=== PATIENT | male | born 1970 | race Caucasian/White ===

== ENCOUNTER → 2016-11-24 | Outpatient (CLI) | payer BC, MEDICAID ==
[~2016-11-24] MED LIST: ATAZ1TAB PO; AZIT250T PO; AZIT250T5 PO; BUPR100T6 PO; EMTR1TAB7 PO; LISI40TA PO; PRAV40TA2 PO; SERT100T PO
[2016-11-24 15:51] LABS: BASOPHILS % (AUTO) 0 % (0-10); EOSINOPHILS # (AUTO) 0.1 10^3/uL (0.0-0.3); EOSINOPHILS % (AUTO) 2 % (0-10); LYMPHOCYTES % (AUTO) 27 % (12-44); MEAN CORPUSCULAR HEMOGLOBIN 32 PG (25-34); MEAN CORPUSCULAR HGB CONC 36 G/DL (32-36); MEAN CORPUSCULAR VOLUME 87 FL (80-99); MEAN PLATELET VOLUME 10.1 FL (7.4-10.4); MONOCYTES % (AUTO) 14 % (0-12); NEUTROPHILS # (AUTO) 4.2 X 10^3 (1.8-7.8); NEUTROPHILS % (AUTO) 57 % (42-75); PLATELET COUNT 184 10^3/uL (130-400); RED BLOOD COUNT 4.92 10^6/uL (4.35-5.85); RED CELL DISTRIBUTION WIDTH 12.8 % (10.0-14.5); WHITE BLOOD COUNT 7.4 10^3/uL (4.3-11.0)
[2016-11-24 16:08] LABS: ALANINE AMINOTRANSFERASE 21 U/L (0-55); ALBUMIN 4.1 G/DL (3.2-4.5); ANION GAP 9 MMOL/L (5-14); ASPARTATE AMINO TRANSFERASE 15 U/L (5-34); BILIRUBIN,TOTAL 2.6 MG/DL (0.1-1.0); BLOOD UREA NITROGEN 14 MG/DL (7-18); BUN/CREATININE RATIO 13; CALCIUM 8.7 MG/DL (8.5-10.1); CARBON DIOXIDE 21 MMOL/L (21-32); CHLORIDE 110 MMOL/L (98-107); CHOLESTEROL 148 MG/DL (< 200); CREATININE SERUM 1.04 MG/DL (0.60-1.30); DIRECT LDL 88 MG/DL (1-129); GFR ESTIMATED > 60; GLUCOSE 106 MG/DL (70-105); POTASSIUM 3.8 MMOL/L (3.6-5.0); SODIUM 140 MMOL/L (135-145); TOTAL PROTEIN 6.6 G/DL (6.4-8.2); TRIGLYCERIDES 223 MG/DL (<150); VLDL CHOLESTEROL 45 MG/DL (5-40)
[2016-11-24 16:37] LABS: THYROID STIMULATING HORMONE 1.02 UIU/ML (0.35-4.94)
[2016-11-26 07:25] LABS: LYMPH % FLOW 28.9 % (18.0-44.0); WBC FOR FLOW 7.3 /UL (4.3-11.0)
[2016-11-26 12:05] LABS: CD8 LYMPH ABS 781 /uL (200-1300)
[2016-11-27 07:50] LABS: CD4 LYMPH % 41.2 %; CD4 LYMPH ABS 868.2 /uL (500.0-2000.0); CD4/CD8 RATIO 1.1 ratio (1.2-6.0)
[2016-11-28 11:48] LABS: HIV-1 RNA PCR COPIES/ML PT Not Detected Copies/mL (<=39)
[2016-11-28 14:13] LABS: HIV-1 RNA PCR LOG COPIES/ML PT Not Detected (<=1.59)
== END ==
LOC: LAB 15:26
PROVIDERS: ATTEND Nurse Practitioner Family
DX: B20 Human immunodeficiency virus [HIV] disease (principal); Z13.220 Encounter for screening for lipoid disorders; Z13.29 Encounter for screening for other suspected endocrine disorder
CPT/HCPCS: 36415; 80053; 80061; 84439; 84443; 85025; 86360; 87536

== ENCOUNTER → 2017-06-13 | Outpatient (CLI) | payer BC, MEDICAID ==
--- NOTE | 2017-06-13 11:59 | Diagnostic Imaging Report ---
PROCEDURE: MRI lumbar spine. TECHNIQUE: Multiplanar, multisequence MRI of the lumbar spine was performed without contrast. INDICATION: Back pain. COMPARISON: None. FINDINGS: There are 5 lumbar type vertebral bodies presumed for the purposes of this report. Normal alignment. Vertebral body heights are maintained. Normal bone marrow signal. No abnormal signal in the conus which terminates at L1. Normal morphology of the cauda equina without evidence of arachnoiditis. The visualized abdominal and pelvic contents are unremarkable. At L3-L4, there is a right subarticular radial tear and disc protrusion which moderately narrows the right lateral recess. At L4-L5, there is a right foraminal radial tear and disc protrusion which, along with facet arthropathy at this level, results in moderate right neural foraminal narrowing. The intervertebral disc are otherwise preserved. No other evidence of neural impingement in the lumbar spine. IMPRESSION: Disc protrusions result in moderate right lateral recess narrowing at L3-L4 and right neural foraminal narrowing at L4-L5. Both of these findings would account for a right L4 radiculopathy. Dictated by: Dictated on workstation # [id number]
== END ==
LOC: RAD 08:39
PROVIDERS: ATTEND Orthopaedic Surgery
DX: M51.26 Other intervertebral disc displacement, lumbar region (principal); M48.06 Spinal stenosis, lumbar region
CPT/HCPCS: 72148

== ENCOUNTER 2017-06-22 13:24 | Emergency (ER) | payer OTHER, BC ==
[~2017-06-22] VITALS: Ht 182.9 cm; Wt 99.8 kg
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
--- NOTE | 2017-06-22 19:00 | Diagnostic Imaging Report ---
INDICATION: Mid back pain. COMPARISON: None. TECHNIQUE: Multiplanar multisequence MRI images of the thoracic spine were obtained without contrast. FINDINGS: Alignment is normal. There is no subluxation or fracture. No osseous lesion identified. The course and caliber of the thoracic cord are normal. There is minimal to mild diffuse degenerative disc disease. There is a broad-based posterior disc bulge at T6-T7 and T7-T8. However, there is no foraminal or central canal stenosis. The neural foramen and posterior elements are normal. There is no paraspinous mass. IMPRESSION: 1. Minimal to mild diffuse degenerative disc disease with posterior broad-based disc bulges at T6-T7, T7-T8. 2. No foraminal or central canal stenosis. 3. Normal cord signal. Dictated by: Dictated on workstation # [id number]
[2017-06-22 19:29] VITALS: BP 118/78
== END 2017-06-22 19:29 | disposition home or self-care (01) ==
LOC: EDUNIT# 13:24 → ER 13:27
DX: M54.6 Pain in thoracic spine (principal); M54.41 Lumbago with sciatica, right side
CPT/HCPCS: 72146; 72148; 99282

== ENCOUNTER → 2017-07-16 | Outpatient (CLI) | payer OTHER, BC ==
--- NOTE | 2017-07-16 15:23 | Diagnostic Imaging Report ---
PROCEDURE: MR imaging cervical spine without contrast. TECHNIQUE: Multiplanar, multisequence MR imaging of the cervical spine was performed without contrast. INDICATION: Neck pain. FINDINGS: There is mild posterior translation of C5 over C6. 2 mm of posterior translation of the vertebra is seen at this level. Otherwise, the posterior spinal line alignment is satisfactory. The vertebral body heights are preserved. There is moderate disc height loss at C5/6 and mild disc height loss at C6/7 levels. There is disc desiccation at all levels. The spinal cord has normal signal and caliber. The foramen magnum and upper cervical canal are patent. C2/3: No disc herniation, no spinal canal or foraminal stenosis. C3/4: No disc herniation, no spinal canal or foraminal stenosis. C4/5: There is a right paracentral disc spur complex with no associated spinal canal stenosis. There is uncovertebral joint hypertrophy on the right side resulting in mild neural foraminal stenosis. There is also mild foraminal stenosis on the left related to facet joint hypertrophy. C5/6: There is mild posterior translation of C5 over C6. There is a prominent disc spur complex with slight inferior migration component and a prominent posterior ligamentous hypertrophy. There is severe spinal canal stenosis reducing the AP dimension of the canal to 5.8 mm with mild cord compression. No cord signal abnormality. There is bilateral severe foramina stenosis. C6/7: There is a spur disc complex associated with [id number] spinal canal stenosis reducing the AP dimension of the canal to 6.7 mm. There is mild cord compression. The foramina demonstrates severe stenosis on the left and moderate stenosis on the right. C7/T1: There is no disc herniation and no spinal canal stenosis. The foramina demonstrate no stenosis on the right and moderate to severe stenosis on the left. This appears to relate to mostly facet and some uncovertebral hypertrophy. IMPRESSION: There is severe spinal canal stenosis with associated cord compression but no cord signal abnormality at C5/6 and C6/7 levels. Dictated by: Dictated on workstation # [id number]
== END ==
LOC: RAD 13:38
PROVIDERS: ATTEND Orthopaedic Surgery
DX: M48.02 Spinal stenosis, cervical region (principal); M54.12 Radiculopathy, cervical region
CPT/HCPCS: 72141

== ENCOUNTER 2018-11-23 07:42 | Outpatient (CLI) | payer BC, MEDICAID ==
[~2018-11-23] VITALS: Ht 182.9 cm; Wt 99.8 kg
== END 2018-11-23 13:22 | disposition home or self-care (01) ==
LOC: PREOP 07:42
PROVIDERS: ATTEND Surgery
DX: Z01.818 Encounter for other preprocedural examination (principal)

== ENCOUNTER 2018-11-24 10:54 | Day surgery (SDC) | payer BC, MEDICAID ==
[~2018-11-24] VITALS: Ht 182.9 cm; Wt 99.8 kg
[~2018-11-24 10:54] MED LIST changes: +AZIT250T12 PO; -AZIT250T5 PO; +EMTR1TAB13 PO; +FLUO20CA42 PO
--- OUTSIDE RECORDS SUMMARY | 2018-11-24 10:59 | XMS REPORT ---
Author Author Lynn Estrada [facility] eClinicalWorks Address Unknown Phone Unavailable Care Team Providers Care E Learning Manager Name Role Phone Lynn Estrada Unavailable Allergies No Known Allergies Problems Problem Type Condition ICD-9 Code Onset Dates Condition Status Problem ED (erectile dysfunction) 607.84 Active Problem Essential hypertension, benign 401.1 Active Problem Hyperglycemia 790.29 Active Problem Human immunodeficiency virus (HIV) disease 042 Active Problem Pain in soft tissues of limb 729.5 Active Problem Nondependent tobacco use disorder 305.1 Active Medications Medication Code System Code Instructions Start Date End Date Status Dosage Cialis [facility] [address]-99 20 MG Orally every 72 hrs February 18, 2013 1 tablet as needed Results No Known Results Summary Purpose eClinicalWorks Submission
--- OUTSIDE RECORDS SUMMARY | 2018-11-24 10:59 | XMS REPORT ---
Author Author Nuvia Garcia Organization eClinicalWorks Address Unknown Phone Unavailable Care Team Providers Care Home Improvement Contractor Name Role Phone Nuvia Garcia CP Unavailable Allergies No Known Allergies Problems Problem Type Condition ICD-9 Code Onset Dates Condition Status Problem long-term (current) use of opiate analgesic V58.69 Inactive Problem Impotence of organic origin 607.84 Inactive Problem Need for prophylactic vaccination against streptococcus pneumoniae ( pneumococcus) V03.82 Inactive Problem Unspecified infectious and parasitic diseases 136.9 Inactive Problem Essential hypertension, benign 401.1 Active Problem Pain in soft tissues of limb 729.5 Inactive Problem Human immunodeficiency virus [HIV] 042 Inactive Problem Need for prophylactic vaccination and inoculation, Influenza V04.81 Inactive Problem Unspecified sinusitis (chronic) 473.9 Inactive Problem Nondependent tobacco use disorder 305.1 Active Problem Screening examination for venereal disease V74.5 Inactive Medications Medication Code System Code Instructions Start Date End Date Status Dosage Lisinopril [facility] 25578097107 20 Orally Once a day 2 tablet s Results No Known Results Summary Purpose eClinicalWorks Submission
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
--- OUTSIDE RECORDS SUMMARY | 2018-11-24 10:59 | XMS REPORT ---
Author Author Lynn Estrada [facility] eClinicalWorks Address Unknown Phone Unavailable Care Team Providers Care Cooler Tender Name Role Phone Lynn Estrada Unavailable Allergies No Known Allergies Problems Problem Type Condition ICD-9 Code Onset Dates Condition Status Problem skilled nursing (current) use of opiate analgesic V58.69 Inactive [...] examination for venereal disease V74.5 Inactive Medications No Known Medications Results No Known Results Summary Purpose SegmintinicalWorks Submission
--- OUTSIDE RECORDS SUMMARY | 2018-11-24 10:59 | XMS REPORT ---
Author Author Nuvia Garcia Organization [employer] Address Unknown Phone Unavailable Care Team Providers Care Analyst Market Intelligence Name Role Phone Nuvia Garcia CP Unavailable Allergies No Known Allergies Problems Problem Type Condition ICD-9 Code Onset Dates Condition Status Problem penitentiary (current) use of opiate analgesic V58.69 Inactive [...] Instructions Start Date End Date Status Dosage Pravastatin Sodium [facility] [address]-52 40 MG Orally QHS Nov 08, 2014 1 tablet Results No Known Results Summary Purpose eClinicalWorks Submission
--- OUTSIDE RECORDS SUMMARY | 2018-11-24 10:59 | XMS REPORT ---
Author Author Tamiko Fong [facility] Address [address] [place], [place] [id number] Care Team Providers Care Mononitrotoluene Operator Name Role Phone Tamiko Fong Unavailable PROBLEMS Type Condition ICD9-CM Code [id number] Code Onset Dates Condition Status SNOMED Code Problem Benign essential hypertension I10 Active 6590806 Problem Arthralgia of right ankle M25.571 Active 252201399 Problem Depression F32.9 Active 49747662 Problem Acquired immunodeficiency syndrome B20 Active 49279118 Problem Mixed hyperlipidemia E78.2 Active 514695163 Problem Generalized osteoarthritis of multiple sites M15.9 Active 312702866 Problem Bronchiolitis J21.9 Active 6128308 Problem Cigarette smoker F17.210 Active 98724934 Problem Erectile dysfunction, unspecified erectile dysfunction type N52.9 Active 986056381 Problem Other chronic pain G89.29 Active 43995151 Problem Crushing injury of right foot, sequela S97.81XS Active 67317218 ALLERGIES No Known Allergies ENCOUNTERS Encounter Location Date Diagnosis [facility] [address] [place], [place] [id number] Jun, Acquired immunodeficiency syndrome B20 ; Influenza vaccine needed Z23 and Other chronic pain G89.[address] [address] Mar, [address] [address] February, Acquired immunodeficiency syndrome B20 and Human immunodeficiency virus (HIV) disease [address] [id number] Jan, Acquired immunodeficiency syndrome B20 [address] [address] Nov, [address] [address] Nov, [address] [address] Oct, [facility] [address] [place] [phone] Aug, Acquired immunodeficiency syndrome B20 and Influenza vaccine needed Z23 [facility] [address] [place] [id number] Jul, [address] [address] Jul, Depression F32.[address] [address] May, [facility] [address] [id number] May, Acquired immune deficiency syndrome B20 ; 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 ; Benign essential hypertension I10 ; Mixed hyperlipidemia E78.2 ; Cigarette smoker F17.210 and Generalized osteoarthritis of multiple sites M15.[address] [id number] February, Acquired immune deficiency syndrome B20 ; Depression F32.9 ; Benign essential hypertension I10 ; Mixed hyperlipidemia E78.2 and Cigarette smoker F17.[address] [address] Nov, [facility] [address] [id number] Nov, Acquired immune deficiency syndrome B20 ; Screening examination for sexually transmitted disease Z11.3 ; Pain in right ankle and joints of right foot M25.571 ; Other chronic pain G89.29 ; Bronchiolitis J21.9 and Depression F32.9 [facility] [address] [place], [place] [id number] Jul, Acquired immunodeficiency syndrome B20 ; Influenza vaccine needed Z23 ; Erectile dysfunction, unspecified erectile dysfunction type N52.9 ; Arthralgia of right ankle M25.571 and Crushing injury of right foot, sequela S97.81XS [address] [address] Jun, [address] [address] 08 Jun, 2016 [facility] [address] [id number] Apr, Acquired immunodeficiency syndrome B20 [facility] [address] [id number] Dec, Acquired immune deficiency syndrome B20 ; Encounter for immunization Z23 ; Screening examination for sexually transmitted disease Z11.3 and Depression F32.9 [facility] [address] [place] [phone] Nov, [address] [address] Oct, Essential (primary) hypertension I10 [address] [id number] Sep, Human immunodeficiency virus (HIV) disease B20 and Smoking F17.[address] [address] Aug, [address] [address] Aug, Depression F32.[address] [address] Jun, Hyperlipidemia 272.[address] [address] Jun, Hyperlipidemia 272.[address] [id number] Jun, Human immunodeficiency virus (HIV) disease 042 ; Needs flu shot V04.81 ; Hyperlipidemia 272.4 ; Smoker 305.1 and Depression [address] [address] May, [address] [address] Mar, [address] [id number] February, Human immunodeficiency virus (HIV) disease 042 ; Nondependent tobacco use disorder 305.1 ; Essential hypertension, benign 401.1 and Hyperglycemia 790.[address] [address] Jan, [facility] [address] [place] [facility] [address] Nov, [facility] [address] [place] [facility] [address] Nov, [facility] [address] [place] [facility] [address] Nov, [facility] [address] [place], [place] [phone] Oct, Asymptomatic human immunodeficiency virus (HIV) infection status V08 ; Smoker 305.1 and Depression 311 [facility] [address] [place], [place] [phone] Jun, Essential hypertension, benign 401.1 ; Nondependent tobacco use disorder 305.1 and HIV (human immunodeficiency virus infection) V08 [facility] [address] [facility] [address] [place] [phone] May, [facility] [address] [facility] [address] [place] [phone] Mar, [facility] [address] [place] [facility] [address] Jan, [facility] [address] [place] [facility] [address] Oct, [facility] [address] [place] [facility] [address] Jul, [facility] [address] [place] [facility] [address] Apr, [facility] [address] [place] [facility] [address] Jan, [facility] [address] [place] [facility] [address] Oct, [facility] [address] [place] [facility] [address] Oct, [facility] [address] [place] [facility] [address] Jun, [facility] [address] [place] [facility] [address] May, [facility] [address] [place] [facility] [address] Dec, [facility] [address] [place] [facility] [place] [address] Oct, [facility] [address] [facility] [address] [place], [place] [phone] Jul, IMMUNIZATIONS Vaccine Route Administration Date Status Influenza Split 3 yrs > (QUAD) IM Intramuscular Jul 02, 2018 Administered SOCIAL HISTORY Never Assessed REASON FOR VISIT HIV f/u PLAN OF CARE Activity Details Follow Up 4 Months Reason: Pending Test QMP Plus D/L (urine) VITAL SIGNS Height 72 in 2018-07-02 Weight 214 lbs 2018-07-02 Temperature 98.3 degrees Fahrenheit 2018-07-02 Heart Rate 73 /min 2018-07-02 Respiratory Rate 18 /min 2018-07-02 Oximetry 98 % 2018-07-02 BMI 29.02 kg/m2 2018-07-02 Blood pressure systolic 138 mm Hg 2018-07-02 Blood pressure diastolic 92 mm Hg 2018-07-02 MEDICATIONS Medication Instructions Dosage Frequency Start Date End Date Duration Status [place] 10-325 MG Orally every 12 hrs 1 tablet as needed 12h 11 May, 2017 30 days Active Voltaren 1 % Transdermal four times a day 2-4 gm apply to right foot/ankle 6h Jul, 30 days Active Cialis 20 MG Orally every 72 hrs 1 tablet as needed February, 30 days Active Ventolin HFA 108 (90 Base) MCG/ACT INHALE TWO PUFFS BY MOUTH EVERY 4 HOURS NEEDED 16 Active Ibuprofen 800 mg TAKE ONE TABLET BY MOUTH THREE TIMES A DAY NEEDED 30 Active Celebrex 200 Orally Once a day 1 capsule 24h 30 Active Pravastatin Sodium 40 MG Orally Once a day 1 tablet 24h Nov, 30 day(s) Active Lisinopril 40 TAKE ONE TABLET BY MOUTH DAILY 30 Active Zoloft 100 MG Orally Once a day 1 tablet 24h 30 Oct, 2014 30 days Active Descovy 200-25 mg Orally Once a day 1 Tablet 24h Apr, 30 days Active Evotaz 300/150 mg Oral Daily 1 24h February, 30 days Active RESULTS Name Result Date Reference Range Human Immunodeficiency Virus (HIV-1), Quantitative, Real-time PCR (graph) 17124 2018-07-02 HIV-1 RNA by PCR <20 log10 HIV-1 RNA TNP Metabolic Panel (14), Comprehensive (CMP) 80176 2018-07-02 Glucose 118 65-99 BUN 10 6-24 Creatinine 1.17 0.76-1.27 eGFR If NonAfricn Am 72 >59 eGFR If Africn Am 84 >59 BUN/Creatinine Ratio 9 9-20 Sodium 142 134-144 Potassium 3.5 3.5-5.2 Chloride 102 96-106 Carbon Dioxide, Total 25 20-29 Calcium 9.2 8.7-10.2 Protein, Total 6.7 6.0-8.5 Albumin 4.4 3.5-5.5 Globulin, Total 2.3 1.5-4.5 A/G Ratio 1.9 1.2-2.2 Bilirubin, Total 1.5 0.0-1.2 Alkaline Phosphatase 112 39-117 AST (SGOT) 21 0-40 ALT (SGPT) 34 0-44 CD4/CD8 Ratio Profile 73756 2018-07-02 Absolute CD 4 [place] [phone] % CD 4 Pos. Lymph. 43.2 30.8-58.5 Abs. CD 8 Suppressor 860 109-897 % CD 8 Pos. Lymph. 37.4 12.0-35.5 CD4/CD8 Ratio 1.16 0.92-3.72 WBC 11.3 3.4-10.8 RBC 4.94 4.14-5.80 Hemoglobin 15.6 13.0-17.7 Hematocrit 45.5 37.5-51.0 MCV 92 79-97 MCH 31.6 26.6-33.0 MCHC 34.3 31.5-35.7 RDW 13.0 12.3-15.4 Platelets 229 150-379 Neutrophils 67 Not Estab. Lymphs 21 Not Estab. Monocytes 11 Not Estab. Eos 1 Not Estab. Basos 0 Not Estab. Immature Cells ROUTE DELIVERER Neutrophils (Absolute) 7.5 1.4-7.0 Lymphs (Absolute) 2.3 0.7-3.1 Monocytes(Absolute) 1.3 0.1-0.9 Eos (Absolute) 0.1 0.0-0.4 Baso (Absolute) 0.0 0.0-0.2 Immature Granulocytes 0 Not Estab. Immature Grans (Abs) 0.0 0.0-0.1 NRBC ROUTE DELIVERER Hematology Comments: ROUTE DELIVERER PROCEDURES Procedure Date Ordered Result Body Site T CELL, ABSOLUTE COUNT/RATIO Jul 02, 2018 Billed by outside source Jul 02, 2018 COMPREHEN METABOLIC PANEL Jul 02, 2018 HIV-1, DNA, QUANT Jul 02, 2018 IMMUNIZATION ADMIN Jul 02, 2018 FLU VAC NO PRSV 4 JAIME 3 YRS+ Jul 02, 2018 INSTRUCTIONS MEDICATIONS ADMINISTERED No Known Medications MEDICAL (GENERAL) HISTORY Type Description Date Medical History Benign essential HTN , (Desc:Benign essential hypertension) ; Medical History Acquired immune deficiency syndrome ; Medical History Smoking ; Medical History Human immunodeficiency virus (HIV) disease Medical History Nondependent tobacco use disorder Medical History Essential hypertension, benign Medical History Pain in soft tissues of limb Medical History Hyperglycemia Medical History ED (erectile dysfunction) Medical History Hyperlipidemia Medical History Smoker Medical History Depression Surgical History R fibula fx 11/2006
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
--- OUTSIDE RECORDS SUMMARY | 2018-11-24 11:00 | XMS REPORT ---
Author Author Nuvia Garcia [facility] eClinicalWorks Address Unknown Phone Unavailable Care Team Providers Care Equipment Maintenance Tech Name Role Phone Nuvia Garcia CP Unavailable Allergies, Adverse Reactions, Alerts Substance Reaction Event Type N.K.D.A. Info Not Available Non Drug Allergy Problems Problem Type Condition Code Onset Dates Condition Status Assessment Human immunodeficiency virus (HIV) disease 042 Active Problem Nondependent tobacco use disorder 305.1 Active Problem Human immunodeficiency virus (HIV) disease 042 Active Problem Smoker 305.1 Active Problem Depression 311 Active Problem Hyperlipidemia 272.4 Active Problem Essential hypertension, benign 401.1 Active Problem Pain in soft tissues of limb 729.5 Active Problem Hyperglycemia 790.29 Active Problem ED (erectile dysfunction) 607.84 Active Assessment Depression 311 Active Assessment Smoker 305.1 Active Assessment Hyperlipidemia 272.4 Active Assessment Needs flu shot V04.81 Active Medications Medication Code System Code Instructions Start Date End Date Status Dosage Lisinopril [facility] 24371165255 20 Orally Once a day 2 tablet s Pravastatin Sodium [facility] [address]-32 40 MG Orally QHS Nov 08, 2014 1 tablet Wellbutrin SR [facility] [address]-87 150 MG Orally 1 tab qd x 7 days then BID Jun 08, 2015 1 tablet (stop smoking 1-2 weeks after starting meds) Ibuprofen [facility] 04700723393 800 TAKE ONE TABLET BY MOUTH THREE TIMES A DAY NEEDED Cialis [facility] [address]-37 20 MG Orally every 72 hrs February 18, 2013 1 tablet as needed Zoloft [facility] [address]-99 100 MG Orally Once a day Nov 03, 2014 1 tablet Evotaz [facility] [address]-39 300/150 mg Oral Daily February 16, 2015 1 Truvada [facility] 84496046736 200-300 TAKE ONE TABLET BY MOUTH EVERY DAY Procedures Procedure Coding System Code Date COMPREHEN METABOLIC PANEL CPT-4 07900 Jun 08, 2015 LIPID PANEL SO CPT-4 22360 Jun 08, 2015 T CELL, ABSOLUTE COUNT/RATIO CPT-4 96548 Jun 08, 2015 VENIPUNCT, ROUTINE* CPT-4 81221 Jun 08, 2015 COMPLETE BLOOD COUNT W/AUTO DIFF CPT-4 69338 Jun 08, 2015 IMMUNIZATION ADMIN CPT-4 20548 Jun 08, 2015 Flu vaccine no Preserv 3 and > CPT-4 32158 Jun 08, 2015 Councel > 10 Min in SX Smoker CPT-4 58789 Jun 08, 2015 HIV-1, DNA, QUANT CPT-4 59696 Jun 08, 2015 Office Visit, Est Pt., Level 3 CPT-4 73299 Jun 08, 2015 Vital Signs Date/Time: Jun 08, 2015 Temperature 98 F Weight 214.8 lbs Height 72 in Respiratory Rate 20 /min Cardiac Monitoring Heart Rate 92 /min Blood Pressure Diastolic 78 mm Hg Blood Pressure Systolic 118 mm Hg BMI 29.13 Index Results Name Result Date Reference Range Unit Abnormality Flag Human Immunodeficiency Virus (HIV-1), Quantitative, Real-time PCR (graph) 51420 Immunizations Vaccine Administration Date Flu vaccine no Preserv 3 and > Jun 08, 2015 Summary Purpose eClinicalWorks Submission
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
--- OUTSIDE RECORDS SUMMARY | 2018-11-24 11:00 | XMS REPORT ---
Author Author Tamiko Fong [facility] Address [address] [place] [phone] Care Team Providers Care Flowers Salesperson Name Role Phone Tamiko Fong Unavailable PROBLEMS Type Condition ICD9-CM Code OGQ35-EU Code Onset Dates Condition Status SNOMED Code Problem Benign essential hypertension I10 Active 0378912 Problem Arthralgia of right ankle M25.571 Active 068216708 Problem Depression F32.9 Active 23370825 Problem Acquired immunodeficiency syndrome B20 Active 48831095 Problem Mixed hyperlipidemia E78.2 Active 750401704 Problem Generalized osteoarthritis of multiple sites M15.9 Active 946329736 Problem Bronchiolitis J21.9 Active 2788054 Problem Cigarette smoker F17.210 Active 33899278 Problem Erectile dysfunction, unspecified erectile dysfunction type N52.9 Active 378757113 Problem Other chronic pain G89.29 Active 28651403 Problem Crushing injury of right foot, sequela S97.81XS Active 39061175 ALLERGIES No Known Allergies ENCOUNTERS Encounter Location Date Diagnosis [facility] [address] [place], [place] [phone] Jun, Acquired immunodeficiency syndrome B20 and Influenza vaccine needed Z23 [address] [address] Mar, [address] [address] February, Acquired immunodeficiency syndrome B20 and Human immunodeficiency virus (HIV) disease 042 [facility] [address] [place] [phone] Jan, Acquired immunodeficiency syndrome B20 [address] [address] Nov, [address] [address] Nov, [address] [place] [address] Oct, [facility] [address] [place] [address] [phone] Aug, Acquired immunodeficiency syndrome B20 and Influenza vaccine needed Z23 [facility] [address] [place] [phone] Jul, [address] [address] Jul, Depression F32.[address] [address] May, [facility] [address] [place] [id number] May, Acquired immune deficiency syndrome B20 ; 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 ; Benign essential hypertension I10 ; Mixed hyperlipidemia E78.2 ; Cigarette smoker F17.210 and Generalized osteoarthritis of multiple sites M15.[address] [id number] February, Acquired immune deficiency syndrome B20 ; Depression F32.9 ; Benign essential hypertension I10 ; Mixed hyperlipidemia E78.2 and Cigarette smoker F17.[address] [address] Nov, [address] [phone] Nov, Acquired immune deficiency syndrome B20 ; Screening examination for sexually transmitted disease Z11.3 ; Pain in right ankle and joints of right foot M25.571 ; Other chronic pain G89.29 ; Bronchiolitis J21.9 and Depression F32.9 [facility] [address] [place] [phone] Jul, Acquired immunodeficiency syndrome B20 ; Influenza vaccine needed Z23 ; Erectile dysfunction, unspecified erectile dysfunction type N52.9 ; Arthralgia of right ankle M25.571 and Crushing injury of right foot, sequela S97.81XS [address] [address] Jun, [address] [address] Jun, [facility] [address] [id number] Apr, Acquired immunodeficiency syndrome B20 [facility] [address] [id number] Dec, Acquired immune deficiency syndrome B20 ; Encounter for immunization Z23 ; Screening examination for sexually transmitted disease Z11.3 and Depression F32.9 [facility] [address] [place] [id number] Nov, [address] [address] Oct, Essential (primary) hypertension I10 [facility] [address] [phone] Sep, Human immunodeficiency virus (HIV) disease B20 and Smoking F17.[address] [address] Aug, [address] [address] Aug, Depression F32.[address] [address] Jun, Hyperlipidemia 272.[address] [address] Jun, Hyperlipidemia 272.[address] [id number] Jun, Human immunodeficiency virus (HIV) disease 042 ; Needs flu shot V04.81 ; Hyperlipidemia 272.4 ; Smoker 305.1 and Depression [address] [address] May, [address] [address] Mar, [facility] [address] [id number] February, Human immunodeficiency virus (HIV) disease 042 ; Nondependent tobacco use disorder 305.1 ; Essential hypertension, benign 401.1 and Hyperglycemia 790.[address] [address] Jan, [place] [address] [place] [address] Nov, [facility] [address] [place] [address] Nov, [facility] [address] [place] [address] Nov, [facility] [address] [place] [phone] Oct, Asymptomatic human immunodeficiency virus (HIV) infection status V08 ; Smoker 305.1 and Depression 311 [facility] [address] [place] [phone] Jun, Essential hypertension, benign 401.1 ; Nondependent tobacco use disorder 305.1 and HIV (human immunodeficiency virus infection) V08 [facility] [place] [facility] [address] [facility] [address] [place] [phone] May, [facility] [place] [facility] [address] [facility] [address] [place] [phone] Mar, [facility] [address] [place] [address] Jan, [facility] [address] [place] [address] Oct, [facility] [address] [place] [address] Jul, [facility] [address] [place] [address] Apr, [facility] [address] [place] [address] Jan, [facility] [address] [place] [address] Oct, [facility] [address] [place] [address] Oct, [facility] [address] [place] [address] Jun, [facility] [address] [place] [address] May, [facility] [address] [place] [address] Dec, [facility] [address] [place] [address] Oct, [facility] [address] [facility] [address] [place] [phone] Jul, IMMUNIZATIONS Vaccine Route Administration Date Status Influenza Split 3 yrs > (QUAD) IM Intramuscular Jul 02, 2018 Administered SOCIAL HISTORY Never Assessed REASON FOR VISIT HIV f/u PLAN OF CARE Activity Details Follow Up 4 Months Reason: VITAL SIGNS Height 72 in 2018-07-02 Weight 214 lbs 2018-07-02 Temperature 98.3 degrees Fahrenheit 2018-07-02 Heart Rate 73 /min 2018-07-02 Respiratory Rate 18 /min 2018-07-02 Oximetry 98 % 2018-07-02 BMI 29.02 kg/m2 2018-07-02 Blood pressure systolic 138 mm Hg 2018-07-02 Blood pressure diastolic 92 mm Hg 2018-07-02 MEDICATIONS Medication Instructions Dosage Frequency Start Date End Date Duration Status Greer 10-325 MG Orally every 12 hrs 1 [...] Orally Once a day 1 Tablet 24h 08 Apr, 2016 30 days Active Evotaz 300/150 mg Oral Daily 1 24h February, 30 days Active RESULTS No Results PROCEDURES Procedure Date Ordered Result Body Site T CELL, ABSOLUTE COUNT/RATIO Jul 02, 2018 COMPREHEN METABOLIC PANEL Jul [...]
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
--- OUTSIDE RECORDS SUMMARY | 2018-11-24 11:01 | XMS REPORT ---
Author Author Lynn Estrada Organization [employer] Address Unknown Phone Unavailable Care Team Providers Care Automation Manager Name Role Phone Lynn Estrada Unavailable Allergies No Known Allergies Problems Problem Type Condition ICD-9 Code Onset Dates Condition Status Assessment Hyperlipidemia 272.4 Active Problem Nondependent tobacco use disorder 305.1 Active Problem Human immunodeficiency virus (HIV) disease 042 Active Problem Smoker 305.1 Active Problem Depression 311 Active Problem Hyperlipidemia 272.4 Active Problem Essential hypertension, benign 401.1 Active Problem Pain in soft tissues of limb 729.5 Active Problem Hyperglycemia 790.29 Active Problem ED (erectile dysfunction) 607.84 Active Medications Medication Code System Code Instructions Start Date End Date Status Dosage Pravastatin Sodium [facility] [address]-15 40 MG Orally Once a day Nov 08, 2014 1 tablet Results No Known Results Summary Purpose [employer] Submission
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
--- OUTSIDE RECORDS SUMMARY | 2018-11-24 11:01 | XMS REPORT ---
Author Author Nuvia Garcia Organization [facility] Address [address] [place] [id number] Care Team Providers Care Unit Reactor Operator Name Role Phone Nuvia Garcia Unavailable PROBLEMS Type Condition ICD9-CM Code OPJ83-CL Code Onset Dates Condition Status SNOMED Code Problem Benign essential hypertension I10 Active 1889229 Problem Arthralgia of right ankle M25.571 Active 825204336 Problem Depression F32.9 Active 23804340 Problem Acquired immunodeficiency syndrome B20 Active 31566907 Problem Mixed hyperlipidemia E78.2 Active 093786625 Problem Generalized osteoarthritis of multiple sites M15.9 Active 251034052 Problem Bronchiolitis J21.9 Active 3441959 Problem Cigarette smoker F17.210 Active 06100856 Problem Erectile dysfunction, unspecified erectile dysfunction type N52.9 Active 216343056 Problem Other chronic pain G89.29 Active 26861852 Problem Crushing injury of right foot, sequela S97.81XS Active 43456749 ALLERGIES No Information ENCOUNTERS Encounter Location Date Diagnosis [address] [id number] Apr, [address] [address] February, Acquired immunodeficiency syndrome B20 and Human immunodeficiency virus (HIV) disease [address] [id number] Jan, Acquired immunodeficiency syndrome B20 [address] [address] Nov, [address] [address] Nov, [address] [address] Oct, [facility] [address] [place] [phone] Aug, Acquired immunodeficiency syndrome B20 and Influenza vaccine needed Z23 [facility] [address] [place] [phone] Jul, [address] [address] Jul, Depression F32.[address] [address] May, [address] [id number] May, Acquired immune deficiency syndrome B20 ; care home current use of opiate analgesic Z79.891 ; Benign essential hypertension I10 ; Mixed hyperlipidemia E78.2 ; Cigarette smoker F17.210 and Generalized osteoarthritis of multiple sites M15.[address] [id number] February, Acquired immune deficiency syndrome B20 ; Depression F32.9 ; Benign essential hypertension I10 ; Mixed hyperlipidemia E78.2 and Cigarette smoker F17.[address] [address] Nov, [address] [id number] Nov, Acquired immune deficiency syndrome B20 ; Screening examination for sexually transmitted disease Z11.3 ; Pain in right ankle and joints of right foot M25.571 ; Other chronic pain G89.29 ; Bronchiolitis J21.9 and Depression F32.9 [facility] [address] [place], [place] [phone] Jul, Acquired immunodeficiency syndrome B20 ; Influenza vaccine needed Z23 ; Erectile dysfunction, unspecified erectile dysfunction type N52.9 ; Arthralgia of right ankle M25.571 and Crushing injury of right foot, sequela S97.81XS [address] [address] Jun, [address] [address] Jun, [address] [id number] Apr, Acquired immunodeficiency syndrome B20 [address] [place] [id number] Dec, Acquired immune deficiency syndrome B20 ; Encounter for immunization Z23 ; Screening examination for sexually transmitted disease Z11.3 and Depression F32.9 [facility] [address] [place] [phone] Nov, [address] [address] Oct, Essential (primary) hypertension I10 [facility] [address] [phone] Sep, Human immunodeficiency virus (HIV) disease B20 and Smoking F17.[address] [address] Aug, [address] [address] Aug, Depression F32.[address] [address] Jun, Hyperlipidemia 272.[address] [address] Jun, Hyperlipidemia 272.[address] [id number] Jun, Human immunodeficiency virus (HIV) disease 042 ; Needs flu shot V04.81 ; Hyperlipidemia 272.4 ; Smoker 305.1 and Depression [address] [address] May, [address] [address] Mar, [address] [id number] February, Human immunodeficiency virus (HIV) disease 042 ; Nondependent tobacco use disorder 305.1 ; Essential hypertension, benign 401.1 and Hyperglycemia 790.[address] [address] Jan, [address] [address] Nov, [address] [place] [address] Nov, [facility] [address] [place] [facility] [place] [address] Nov, [facility] [address] [place] [phone] Oct, Asymptomatic human immunodeficiency virus (HIV) infection status V08 ; Smoker 305.1 and Depression 311 [facility] [address] [place] [phone] Jun, Essential hypertension, benign 401.1 ; Nondependent tobacco use disorder 305.1 and HIV (human immunodeficiency virus infection) V08 [facility] [place] [facility] [address] [facility] [address] [place] [phone] May, [facility] [place] [facility] [address] [facility] [address] [place] [phone] Mar, [facility] [address] [place] [facility] [place] [address] Jan, [facility] [address] [place] [facility] [place] [address] Oct, [facility] [address] [place] [facility] [address] Jul, [facility] [address] [place] [facility] [place] [address] Apr, [facility] [address] [place] [facility] [address] Jan, [facility] [address] [place] [facility] [address] Oct, [facility] [address] [place] [facility] [address] Oct, [facility] [address] [place] [facility] [address] Jun, [facility] [address] [place] [facility] [address] May, [facility] [address] [place] [facility] [address] Dec, [facility] [address] [place] [facility] [address] Oct, [facility] [place] [facility] [address] [facility] [address] [place] [phone] Jul, IMMUNIZATIONS No Known Immunizations SOCIAL HISTORY Never Assessed REASON FOR VISIT refills PLAN OF CARE VITAL SIGNS MEDICATIONS Medication Instructions Dosage Frequency Start Date End Date Duration Status Evotaz 300/150 mg Oral Daily 1 24h February, 30 days Active Descovy 200-25 mg Orally Once a day 1 Tablet 24h Apr, 30 days Active RESULTS No Results PROCEDURES [...]
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
--- OUTSIDE RECORDS SUMMARY | 2018-11-24 11:01 | XMS REPORT ---
Author Author Nuvia Garcia Organization [employer] Address Unknown Phone Unavailable Care Team Providers Care Kennel Manager Dog Track Name Role Phone Nuvia Garcia CP Unavailable Allergies No Known Allergies Problems Problem Type Condition Code Onset Dates Condition Status Problem detention (current) use of opiate analgesic V58.69 Inactive [...] Instructions Start Date End Date Status Dosage Zoloft [facility] [address]-81 100 MG Orally Once a day Nov 03, 2014 1 tablet Results No Known Results Summary Purpose [employer] Submission
--- OUTSIDE RECORDS SUMMARY | 2018-11-24 11:01 | XMS REPORT | CCD ---
Author Author MONIQUE TANNER Organization Unknown Address [address] [facility] [address] [place], [place] [address] Care Team Providers Care Roundhouse Worker Name Role Phone VALERIY PHYS, PATY ER Attphys VALERIY PHYS, PATY ER Prisurg Vital Signs Unknown or Not Available. Allergies Unknown or Not Available. Procedures Procedure Code Procedure Type Date CBC W/ AUTO DIFF (RFLX MAN DIFF IF IND) 5949997 SNOMED CT 09/06/2014 COMPREHENSIVE METABOLIC PANEL 755414502 SNOMED CT 2013 URINALYSIS C&S IF IND 053820008 SNOMED CT 09/06/2014 CULTURE BLOOD 73218557 SNOMED CT 09/06/2014 ^CBC W/AUTO DIFF 2113022 SNOMED CT 09/06/2014 CX CHEST [address] 09/06/2014 History of Immunizations Unknown or Not Available. Problems Unknown or Not Available. Results COMPREHENSIVE METABOLIC PANEL - Collect Date/Time: 09/06/2014 13:40 Test Name Code Test Result Test Units Test Ref Range GLUCOSE 2345-7 92 MG/DL L=70 H=100 SODIUM 2951-2 140 MEQ/L L=135 H=148 POTASSIUM 2823-3 4.1 MEQ/L L=3.5 H=5.3 CHLORIDE 2075-0 105 MEQ/L L=96 H=110 CO2 2028-9 22 MEQ/L L=22 H=29 BUN 3094-0 8 MG/DL L=8 H=22 CREATININE 2160-0 1.1 MG/DL L=0.6 H=1.6 SGOT/AST 1920-8 20 IU/L L=10 H=40 SGPT/ALT 1742-6 37 IU/L L=8 H=54 ALK PHOS 6768-6 117 IU/L L=35 H=115 TOTAL PROTEIN 2885-2 7.3 G/DL L=5.5 H=8.5 ALBUMIN 1751-7 4.1 G/DL L=3.1 H=5.4 TOTAL BILI 1975-2 2.0 MG/DL L=0.0 H=1.5 CALCIUM 43081-6 9.9 MG/DL L=8.2 H=10.6 AGE 44 yrs GFR NonAA 72 GFR AA 87 eGFR 60 mL/min/1.7 eGFR AA* 60 mL/min/1.7 CBC W/ AUTO DIFF (RFLX MAN DIFF IF IND) - Collect Date/Time: 09/06/2014 13:40 Test Name Code Test Result Test Units Test Ref Range WBC 60030-8 10.9 TH/CMM L=4.5 H=10.8 RBC 789-8 4.92 ML/CMM L=4.70 H=6.10 HGB 718-7 15.6 G/DL L=14.0 H=18.0 HCT 4544-3 45.0 % L=42.0 H=52.0 MCV 92 FL L=81 H=99 MCH 31.7 PG L=27.0 H=33.0 MCHC 34.7 G/DL L=31.0 H=36.0 RDW SD 41 FL L=36 H=50 RDW CV 12.3 % L=0.0 H=14.8 MPV 10.5 FL L=9.3 H=12.5 PLT 777-3 197 TH/CMM L=130 H=440 NRBC# 0.00 TH/CMM L=0.00 H=0.00 NRBC% 0.0 /100WBC L=0.0 H=2.0 %NEUT 72.9 % %LYMP 16.1 % %MONO 9.1 % %EOS 1.7 % %BASO 0.2 % #NEUT 7.93 TH/CMM L=2.10 H=8.20 #LYMP 1.75 TH/CMM L=0.90 H=5.20 #MONO 0.99 TH/CMM L=0.16 H=1.00 #EOS 0.18 TH/CMM L=0.00 H=0.80 #BASO 0.02 TH/CMM L=0.00 H=0.20 MANUAL DIFF NOT IND N/A URINALYSIS C&S IF IND - Collect Date/Time: 09/06/2014 13:30 Test Name Code Test Result Test Units Test Ref Range COLOR YELLOW N/A NL: YELLOW APPEARANCE CLEAR N/A NL: CLEAR SPEC GRAV 1.010 N/A NL: 1.002 - 1.022 pH 5.5 N/A NL: 5 - 9 PROTEIN NEGATIVE N/A NL: NEGATIVE mg/dl GLUCOSE NEGATIVE N/A NL: NEGATIVE mg/dl KETONE NEGATIVE N/A NL: NEGATIVE mg/dl BILIRUBIN NEGATIVE N/A NL: NEGATIVE BLOOD NEGATIVE N/A NL: NEGATIVE NITRITE NEGATIVE N/A NL: NEGATIVE LEUK SCREEN NEGATIVE N/A NL: NEGATIVE WBC/HPF RARE N/A NL: NEGATIVE RBC/HPF NEGATIVE N/A NL: NEGATIVE CASTS/LPF NEGATIVE N/A NL: NEGATIVE CRYSTALS TRACE AMORPH N/A NL: NEGATIVE MUCOUS THRDS FEW N/A NL: NEGATIVE BACTERIA FEW N/A NL: NEGATIVE EPITH CELLS FEW SQUAMOUS N/A NL: NEGATIVE TRICHOMONAS NEGATIVE N/A NL: NEGATIVE YEAST NEGATIVE N/A NL: NEGATIVE CULT SET UP? NO N/A Active Medications Unknown or Not Available. Medications Administered During Visit Unknown or Not Available. Encounters Encounter Diagnosis Diagnosis Code Start Date ACUTE URI NOS 4659 09/06/2014 Social History Smoking Status Code Start Date End Date Current every day smoker 819843822 Patient Decision Aids Unknown or Not Available. Discharge Instructions You were admitted to [facility] on 09/06/2014 with a principal diagnosis of ACUTE URI NOS. You were discharged from [facility] on 09/06/2014. Should you have any questions prior to discharge, please contact a member of your healthcare team. If you have left the hospital and have any questions, please contact your primary care physician. Chief Complaint and Reason For Visit Chief Complaint Date of Onset COUGH CONGESTION FEVER Function Status Unknown or Not Available. Referral/Transition of Care Unknown or Not Available.
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
--- OUTSIDE RECORDS SUMMARY | 2018-11-24 11:02 | XMS REPORT ---
Author Tamiko Elizabeth [facility] eClinicalWorks Address Unknown Phone Unavailable Care Team Providers Care Block Inspector Name Role Phone Bandar Tamiko CP Unavailable Allergies, Adverse Reactions, Alerts Substance Reaction Event Type N.K.D.A. Info Not Available Non Drug Allergy Problems Problem Type Condition Code Onset Dates Condition Status Problem Acquired immunodeficiency syndrome B20 Active Problem Smoking F17.200 Active Problem Depression F32.9 Active Assessment Acquired immunodeficiency syndrome B20 Active Problem Benign essential hypertension I10 Active Problem Mixed hyperlipidemia E78.2 Active Medications Medication Code System Code Instructions Start Date End Date Status Dosage Ibuprofen [facility] 08585184069 800 TAKE ONE TABLET BY MOUTH THREE TIMES DAILY NEEDED Cialis [facility] [address]-97 20 MG Orally every 72 hrs February 18, 2013 1 tablet as needed Truvada [facility] 66151023847 200-300 MG TAKE ONE TABLET BY MOUTH ONCE DAILY Zoloft [facility] [address]-27 100 MG Orally Once a day Nov 03, 2014 1 tablet Evotaz [facility] 2332-4939-38 300/150 mg Oral Daily February 16, 2015 1 Wellbutrin SR [facility] [address]-96 150 MG Orally 2 tabs qam and 1 tab qpm Jun 08, 2015 1 tablet Lisinopril [facility] 26774075916 20 Orally Once a day 2 tablet s Pravastatin Sodium [facility] [address]-81 40 MG Orally Once a day Nov 08, 2014 1 tablet Evotaz [facility] 98289288329 300-150 TAKE ONE TABLET BY MOUTH DAILY Descovy [facility] [address]-65 200-25 mg Orally Once a day April 11, 2016 1 Tablet Procedures Procedure Coding System Code Date T CELL, ABSOLUTE COUNT/RATIO CPT-4 58765 April 11, 2016 COMPREHEN METABOLIC PANEL CPT-4 78475 April 11, 2016 HIV-1, DNA, QUANT CPT-4 98732 April 11, 2016 Office Visit, Est Pt., Level 3 CPT-4 92186 April 11, 2016 Vital Signs Date/Time: April 11, 2016 Temperature 97.4 F Weight 208.2 lbs Height 72 in Respiratory Rate 20 /min Cardiac Monitoring Heart Rate 92 /min Blood Pressure Diastolic 82 mm Hg Blood Pressure Systolic 138 mm Hg BMI 28.23 Index Results Name Result Date Reference Range Unit Abnormality Flag CD4/CD8 Ratio Profile 05791 ----Monocytes(Absolute) 1.0 [id number] 0.1-0.9 x10E3/uL H ----Eos (Absolute) 0.1 17020641 0.0-0.4 x10E3/uL ----Baso (Absolute) 0.0 95721835 0.0-0.2 x10E3/uL ----Immature Granulocytes 0 44995128 % ----Immature Grans (Abs) 0.0 83142664 0.0-0.1 x10E3/uL ----NRBC COMPRESS ENGINEER 20160411 ----Hematology Comments: COMPRESS ENGINEER 20160411 ----Immature Cells COMPRESS ENGINEER 20160411 ----Neutrophils (Absolute) 4.5 98186034 1.4-7.0 x10E3/uL ----Lymphs (Absolute) 2.1 78049079 0.7-3.1 x10E3/uL ----MCH 31.1 22019927 26.6-33.0 pg ----MCV 89 05416312 79-97 fL ----Abs. CD 8 Suppressor 796 93530525 109-897 /uL ----Basos 0 07730476 % ----% CD 8 Pos. Lymph. 37.9 26658053 12.0-35.5 % H ----Eos 2 69170364 % ----CD4/CD8 Ratio 1.11 00302164 0.92-3.72 ----Monocytes 13 89849263 % ----WBC 7.8 03240993 3.4-10.8 x10E3/uL ----Lymphs 27 16338183 % ----RBC 4.85 88926386 4.14-5.80 x10E6/uL ----Neutrophils 58 15763211 % ----Hemoglobin 15.1 24838759 12.6-17.7 g/dL ----Platelets 189 16716475 150-379 x10E3/uL ----RDW 14.0 43275888 12.3-15.4 % ----Hematocrit 43.1 87230381 37.5-51.0 % ----Absolute CD 4 [facility] 886 22800899 359-1519 /uL ----MCHC 35.0 54254404 31.5-35.7 g/dL ----% CD 4 Pos. Lymph. 42.2 78463177 30.8-58.5 % Human Immunodeficiency Virus (HIV-1), Quantitative, Real-time PCR (graph) 44105 ----HIV-1 RNA by PCR <20 99545545 copies/mL ----log10 HIV-1 RNA TNP 15729432 kqh88pbiv/mL Metabolic Panel (14), Comprehensive (CMP) 57838 ----Sodium, Serum 141 15420189 134-144 mmol/L ----BUN/Creatinine Ratio 8 06775374 9-20 L ----Chloride, Serum 100 72840135 97-108 mmol/L ----Potassium, Serum 4.1 20090184 3.5-5.2 mmol/L ----Calcium, Serum 9.1 20986302 8.7-10.2 mg/dL ----Protein, Total, Serum 6.6 77247327 6.0-8.5 g/dL ----Carbon Dioxide, Total 24 26850741 18-29 mmol/L ----A/G Ratio 2.0 66992499 1.1-2.5 ----eGFR If NonAfricn Am 58 01591535 >59 mL/min/1.73 L ----Bilirubin, Total 2.7 35055361 0.0-1.2 mg/dL H ----eGFR If Africn Am 67 03626140 >59 mL/min/1.73 ----BUN 12 01926426 6-24 mg/dL ----Albumin, Serum 4.4 53387214 3.5-5.5 g/dL ----Globulin, Total 2.2 47830691 1.5-4.5 g/dL ----Creatinine, Serum 1.42 93745167 0.76-1.27 mg/dL H ----ALT (SGPT) 22 20160411 0-44 IU/L ----Glucose, Serum 81 20160411 65-99 mg/dL ----Alkaline Phosphatase, S 127 20160411 39-117 IU/L H ----AST (SGOT) 11 20160411 0-40 IU/L Summary Purpose eClinicalWorks Submission
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
--- OUTSIDE RECORDS SUMMARY | 2018-11-24 11:02 | XMS REPORT ---
Author Author Nuvia Garcia [facility] Address [address] [place], [place] [address] Care Team Providers Care Smash Piecer Name Role Phone Nuvia Garcia Unavailable PROBLEMS Type Condition ICD9-CM Code SQU80-FU Code Onset Dates Condition Status SNOMED Code Problem Acquired immunodeficiency syndrome B20 Active 74652974 Problem Cigarette smoker F17.210 Active 29405686 Problem Depression F32.9 Active 37342605 Problem Mixed hyperlipidemia E78.2 Active 968977764 Problem Benign essential hypertension I10 Active 6179423 Problem Generalized osteoarthritis of multiple sites M15.9 Active 977555240 Problem Other chronic pain G89.29 Active 51962941 Problem Crushing injury of right foot, sequela S97.81XS Active 88964576 Problem Arthralgia of right ankle M25.571 Active 554361444 Problem Bronchiolitis J21.9 Active 7292570 Problem Erectile dysfunction, unspecified erectile dysfunction type N52.9 Active 465803532 ALLERGIES No Information SOCIAL HISTORY Never Assessed PLAN OF CARE VITAL SIGNS MEDICATIONS Medication Instructions Dosage Frequency Start Date End Date Duration Status Zoloft 100 MG Orally Once a day 1 tablet 24h Oct, 30 days Active RESULTS No Results PROCEDURES No Known procedures IMMUNIZATIONS No Known Immunizations MEDICAL (GENERAL) HISTORY Type Description Date Medical [...]
--- OUTSIDE RECORDS SUMMARY | 2018-11-24 11:02 | XMS REPORT ---
Author SUKI Hopson [facility] eClinicalWorks Address Unknown Phone Unavailable Care Team Providers Care Crib Pad Maker Name Role Phone SUKI JOSEPH CP Unavailable Allergies No Known Allergies Problems Problem Type Condition Code Onset Dates Condition Status Problem HIV (human immunodeficiency virus infection) Z21 Active Problem Essential hypertension I10 Active Problem Tobacco use Z72.0 Active Problem Hyperlipidemia, unspecified hyperlipidemia type E78.5 Active Problem Moderate single current episode of major depressive disorder F32.1 Active Medications No Known Medications Results No Known Results Summary Purpose eClinicalWorks Submission
--- OUTSIDE RECORDS SUMMARY | 2018-11-24 11:02 | XMS REPORT ---
Author Author Nuvia Garcia [facility] Address [address] [place], [place] [id number] Care Team Providers Care Coffee Break Attendant Name Role Phone Nuvia Garcia Unavailable PROBLEMS Type Condition ICD9-CM Code FOX72-CO Code Onset Dates Condition Status SNOMED Code Problem Benign essential hypertension I10 Active 0302531 Problem Arthralgia of right ankle M25.571 Active 252538405 Problem Depression F32.9 Active 31671007 Problem Acquired immunodeficiency syndrome B20 Active 48275034 Problem Mixed hyperlipidemia E78.2 Active 286471637 Problem Generalized osteoarthritis of multiple sites M15.9 Active 882428704 Problem Bronchiolitis J21.9 Active 8937211 Problem Cigarette smoker F17.210 Active 04798992 Problem Erectile dysfunction, unspecified erectile dysfunction type N52.9 Active 971941480 Problem Other chronic pain G89.29 Active 03394227 Problem Crushing injury of right foot, sequela S97.81XS Active 64605315 ALLERGIES No Information SOCIAL HISTORY Never Assessed PLAN OF CARE VITAL SIGNS MEDICATIONS Unknown [...]
--- OUTSIDE RECORDS SUMMARY | 2018-11-24 11:02 | XMS REPORT ---
Author Author Nuvia Garcia Organization [facility] Address [address] [place] [phone] Care Team Providers Care Director Of Quality Improvement Name Role Phone Nuvia Garcia Unavailable PROBLEMS Type Condition ICD9-CM Code TUD18-IO Code Onset Dates Condition Status SNOMED Code Problem Benign essential hypertension I10 Active 3893759 Problem Arthralgia of right ankle M25.571 Active 988520261 Problem Depression F32.9 Active 16824981 Problem Acquired immunodeficiency syndrome B20 Active 45293478 Problem Mixed hyperlipidemia E78.2 Active 259765025 Problem Generalized osteoarthritis of multiple sites M15.9 Active 650459056 Problem Bronchiolitis J21.9 Active 1481095 Problem Cigarette smoker F17.210 Active 10722130 Problem Erectile dysfunction, unspecified erectile dysfunction type N52.9 Active 838237135 Problem Other chronic pain G89.29 Active 96629686 Problem Crushing injury of right foot, sequela S97.81XS Active 82162209 ALLERGIES No Information ENCOUNTERS Encounter Location Date Diagnosis [address] [address] Nov, [address] [address] Nov, [address] [address] Oct, [facility] [address] [place] [phone] Aug, Acquired immunodeficiency syndrome B20 and Influenza vaccine needed Z23 [facility] [address] [place] [id number] Jul, [address] [address] Jul, Depression F32.[address] [address] May, [facility] [address] [place] [id number] May, Acquired immune deficiency syndrome B20 ; oysterman current use of opiate analgesic Z79.891 ; Benign essential hypertension I10 ; Mixed hyperlipidemia E78.2 ; Cigarette smoker F17.210 and Generalized osteoarthritis of multiple sites M15.9 [facility] [address] [place] [id number] February, Acquired immune deficiency syndrome B20 ; Depression F32.9 ; Benign essential hypertension I10 ; Mixed hyperlipidemia E78.2 and Cigarette smoker F17.[address] [address] Nov, [address] [id number] Nov, Acquired immune deficiency syndrome B20 ; Screening examination for sexually transmitted disease Z11.3 ; Pain in right ankle and joints of right foot M25.571 ; Other chronic pain G89.29 ; Bronchiolitis J21.9 and Depression F32.9 [place] [facility] [address] [place], [place] [id number] Jul, Acquired immunodeficiency syndrome B20 ; Influenza vaccine needed Z23 ; Erectile dysfunction, unspecified erectile dysfunction type N52.9 ; Arthralgia of right ankle M25.571 and Crushing injury of right foot, sequela S97.81XS [address] [address] Jun, [address] [address] Jun, [address] [id number] Apr, Acquired immunodeficiency syndrome B20 [address] [id number] Dec, Acquired immune deficiency syndrome B20 ; Encounter for immunization Z23 ; Screening examination for sexually transmitted disease Z11.3 and Depression F32.9 [facility] [address] [place] [phone] Nov, [address] [address] Oct, Essential (primary) hypertension I10 [facility] [address] [id number] Sep, Human immunodeficiency virus (HIV) disease B20 and Smoking F17.[address] [address] Aug, [address] [address] Aug, Depression F32.[address] [address] Jun, Hyperlipidemia 272.[address] [address] Jun, Hyperlipidemia 272.4 [facility] [address] [id number] Jun, Human immunodeficiency virus (HIV) disease 042 ; Needs flu shot V04.81 ; Hyperlipidemia 272.4 ; Smoker 305.1 and Depression [address] [address] May, [address] [address] Mar, [facility] [address] [id number] February, Human immunodeficiency virus (HIV) disease 042 ; Nondependent tobacco use disorder 305.1 ; Essential hypertension, benign 401.1 and Hyperglycemia 790.[address] [address] Jan, [address] [address] Nov, [address] [address] Nov, [address] [address] Nov, [facility] [address] [id number] Oct, Asymptomatic human immunodeficiency virus (HIV) infection status V08 ; Smoker 305.1 and Depression 311 [facility] [address] [place], [place] [phone] Jun, Essential hypertension, benign 401.1 ; Nondependent tobacco use disorder 305.1 and HIV (human immunodeficiency virus infection) V08 [facility] [address] [facility] [address] [place], [place] [phone] May, [facility] [address] [facility] [address] [place] [id number] Mar, [facility] [address] [place] [address] Jan, [facility] [address] [place] [address] Oct, [facility] [address] [place] [address] Jul, [facility] [address] [place] [address] Apr, [facility] [address] [place] [address] Jan, [facility] [address] [place] [address] Oct, [facility] [address] [place] [address] Oct, [facility] [address] [place] [address] Jun, [facility] [address] [place] [address] May, [facility] [address] [place] [address] Dec, [facility] [address] [place] [address] Oct, [facility] [address] [facility] [address] [place], [place] [phone] Jul, IMMUNIZATIONS No Known Immunizations SOCIAL HISTORY Never Assessed REASON FOR VISIT PLAN OF CARE VITAL SIGNS MEDICATIONS Medication Instructions Dosage Frequency Start Date End Date Duration Status Lisinopril 40 TAKE ONE TABLET BY MOUTH DAILY 30 Active RESULTS No Results PROCEDURES No Known [...]
--- OUTSIDE RECORDS SUMMARY | 2018-11-24 11:02 | XMS REPORT ---
Author Author Lynn Estrada Organization [employer] Address Unknown Phone Unavailable Care Team Providers Care Account Review Specialist Name Role Phone Lynn Estrada Unavailable Allergies [...] Date End Date Status Dosage Pravastatin Sodium [facility] [address]-87 40 MG Orally QHS Nov 08, 2014 1 tablet Results No Known Results Summary Purpose [employer] Submission
--- OUTSIDE RECORDS SUMMARY | 2018-11-24 11:02 | XMS REPORT ---
Author Author Lynn Estrada Organization [employer] Address Unknown Phone Unavailable Care Team Providers Care Traffic Enumerator Name Role Phone Lynn Estrada Unavailable Allergies No Known Allergies Problems Problem Type Condition Code Onset Dates Condition Status Problem Acquired immunodeficiency syndrome B20 Active Problem Smoking F17.200 Active Problem Depression F32.9 Active Assessment Essential (primary) hypertension I10 Active Problem Benign essential hypertension I10 Active Problem Mixed hyperlipidemia E78.2 Active Medications Medication Code System Code Instructions Start Date End Date Status Dosage Ibuprofen [facility] 01878255757 800MG TAKE ONE TABLET BY MOUTH THREE TIMES DAILY NEEDED Lisinopril [facility] 10403388997 20 Orally Once a day 2 tablet s Results No Known Results Summary Purpose [employer] Submission
--- OUTSIDE RECORDS SUMMARY | 2018-11-24 11:02 | XMS REPORT ---
Author Lynn Miles [facility] [employer] Address Unknown Phone Unavailable Care Team Providers Care Wearing Apparel Shaker Name Role Phone Lynn Estrada CP Unavailable Allergies No Known Allergies Problems Problem Type Condition Code Onset Dates Condition Status Problem ED (erectile dysfunction) 607.84 Active Problem Essential hypertension, benign 401.1 Active Problem Hyperglycemia 790.29 Active Problem Human immunodeficiency virus (HIV) disease 042 Active Problem Pain in soft tissues of limb 729.5 Active Problem Nondependent tobacco use disorder 305.1 Active Medications No Known Medications Results No Known Results Summary Purpose [employer] Submission
--- OUTSIDE RECORDS SUMMARY | 2018-11-24 11:02 | XMS REPORT ---
Author Author BROCK WALSH Organization [employer] Address Unknown Phone Unavailable Care Team Providers Care Automatic Punch Press Operator Name Role Phone BROCK WALSH CP Unavailable Allergies No Known Allergies Problems [...]
--- OUTSIDE RECORDS SUMMARY | 2018-11-24 11:03 | XMS REPORT ---
Author Author Lynn Estrada [facility] [employer] Address Unknown Phone Unavailable Care Team Providers Care Motion Picture Projectionist Apprentice Name Role Phone Lynn Estrada Unavailable Allergies No Known Allergies Problems Problem Type Condition Code Onset Dates Condition Status Assessment Hyperglycemia 790.29 Active Problem Smoking F17.200 Active Problem Benign essential hypertension I10 Active Problem Acquired immunodeficiency syndrome B20 Active Assessment Nondependent tobacco use disorder 305.1 Active Assessment Essential hypertension, benign 401.1 Active Problem Mixed hyperlipidemia E78.2 Active Assessment Human immunodeficiency virus (HIV) disease 042 Active Medications Medication Code System Code Instructions Start Date End Date Status Dosage Pravastatin Sodium [facility] [address]-79 40 MG Orally QHS Nov 08, 2014 1 tablet Ibuprofen [facility] 96655833438 800 TAKE ONE TABLET BY MOUTH THREE TIMES A DAY NEEDED Lisinopril [facility] 99939303536 20 Orally Once a day 2 tablet s Evotaz [facility] 8427-2262-59 300/150 mg Oral Daily February 16, 2015 1 Cialis [facility] [address]-37 20 MG Oral 1 (one) Tablet every 72 hours prn February 18, 2013 mailed to patient Power [facility] 12595715738 200-300 TAKE ONE TABLET BY MOUTH EVERY DAY Chantix [facility] [address]-47 1 MG Orally Twice a day Nov 03, 2014 1 tablet Zoloft [facility] [address]-11 100 MG Orally Once a day Nov 03, 2014 1 tablet Procedures Procedure Coding System Code Date COMPREHEN METABOLIC PANEL CPT-4 52234 February 16, 2015 GLYCATED HEMOGLOBIN TEST SO CPT-4 20654 February 16, 2015 T CELL, ABSOLUTE COUNT/RATIO CPT-4 02104 February 16, 2015 VENIPUNCT, ROUTINE* CPT-4 18509 February 16, 2015 Community Placement Worker 3-10 Min in SX Smoker CPT-4 42652 February 16, 2015 ASSAY OF INSULIN CPT-4 61276 February 16, 2015 COMPLETE BLOOD COUNT W/AUTO DIFF CPT-4 23073 February 16, 2015 Office Visit, Est Pt., Level 3 CPT-4 80758 February 16, 2015 Vital Signs Date/Time: February 16, 2015 Temperature 98.0 F Weight 224.4 lbs Height 71.5 in Respiratory Rate 18 /min Cardiac Monitoring Heart Rate 67 /min Blood Pressure Diastolic 96 mm Hg Blood Pressure Systolic 153 mm Hg BMI 30.86 Index Results No Known Results Summary Purpose [employer] Submission
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
--- OUTSIDE RECORDS SUMMARY | 2018-11-24 11:03 | XMS REPORT ---
Author Author Nuvia Garcia Organization [facility] Address [address] [place] [phone] Care Team Providers Care Software Database Architect Name Role Phone Nuvia Garcia Unavailable PROBLEMS Type Condition ICD9-CM Code JQL72-FC Code Onset Dates Condition Status SNOMED Code Problem Benign essential hypertension I10 Active 6939955 Problem Arthralgia of right ankle M25.571 Active 562017297 Problem Depression F32.9 Active 90264463 Problem Acquired immunodeficiency syndrome B20 Active 69396316 Problem Mixed hyperlipidemia E78.2 Active 263354153 Problem Generalized osteoarthritis of multiple sites M15.9 Active 222642699 Problem Bronchiolitis J21.9 Active 9867880 Problem Cigarette smoker F17.210 Active 51508946 Problem Erectile dysfunction, unspecified erectile dysfunction type N52.9 Active 095470108 Problem Other chronic pain G89.29 Active 28256322 Problem Crushing injury of right foot, sequela S97.81XS Active 46089437 ALLERGIES No Information ENCOUNTERS Encounter Location Date Diagnosis [place] [facility] [address] [place] [id number] Apr, [address] [address] Mar, [address] [address] February, Acquired immunodeficiency syndrome B20 and Human immunodeficiency virus (HIV) disease 042 [facility] [address] [id number] Jan, Acquired immunodeficiency syndrome B20 [address] [address] Nov, [address] [address] Nov, [address] [address] Oct, [facility] [address] [place] [id number] Aug, Acquired immunodeficiency syndrome B20 and Influenza vaccine needed Z23 [facility] [address] [place] [id number] Jul, [address] [address] Jul, Depression F32.[address] [address] May, [facility] [address] [id number] May, Acquired immune deficiency syndrome B20 ; exterminator current use of opiate analgesic Z79.891 ; Benign essential hypertension I10 ; Mixed hyperlipidemia E78.2 ; Cigarette smoker F17.210 and Generalized osteoarthritis of multiple sites M15.[address] [id number] February, Acquired immune deficiency syndrome B20 ; Depression F32.9 ; Benign essential hypertension I10 ; Mixed hyperlipidemia E78.2 and Cigarette smoker F17.[address] [address] Nov, [address] [id number] Nov, Acquired immune deficiency syndrome B20 ; Screening examination for sexually transmitted disease Z11.3 ; Pain in right ankle and joints of right foot M25.571 ; Other chronic pain G89.29 ; Bronchiolitis J21.9 and Depression F32.9 [facility] [facility] [address] [place] [id number] Jul, Acquired immunodeficiency syndrome B20 ; Influenza vaccine needed Z23 ; Erectile dysfunction, unspecified erectile dysfunction type N52.9 ; Arthralgia of right ankle M25.571 and Crushing injury of right foot, sequela S97.81XS [address] [address] Jun, [address] [address] Jun, [address] [id number] Apr, Acquired immunodeficiency syndrome B20 [facility] [address] [id number] Dec, Acquired immune deficiency syndrome B20 ; Encounter for immunization Z23 ; Screening examination for sexually transmitted disease Z11.3 and Depression F32.9 [facility] [address] [place] [phone] Nov, [address] [address] Oct, Essential (primary) hypertension I10 [facility] [address] [id number] Sep, Human immunodeficiency virus (HIV) disease B20 and Smoking F17.[address] [address] Aug, [address] [address] Aug, Depression F32.[address] [address] Jun, Hyperlipidemia 272.[address] [address] Jun, Hyperlipidemia 272.[address] [id number] Jun, Human immunodeficiency virus (HIV) disease 042 ; Needs flu shot V04.81 ; Hyperlipidemia 272.4 ; Smoker 305.1 and Depression [address] [address] May, [address] [address] Mar, [facility] [address] [id number] February, Human immunodeficiency virus (HIV) disease 042 ; Nondependent tobacco use disorder 305.1 ; Essential hypertension, benign 401.1 and Hyperglycemia 790.[address] [address] Jan, [address] [address] Nov, [facility] [address] [facility] [place] [facility] [address] Nov, [facility] [address] [facility] [place] [facility] [address] Nov, [facility] [address] [place], [place] [phone] Oct, Asymptomatic human immunodeficiency virus (HIV) infection status V08 ; Smoker 305.1 and Depression 311 [facility] [address] [place], [place] [phone] Jun, Essential hypertension, benign 401.1 ; Nondependent tobacco use disorder 305.1 and HIV (human immunodeficiency virus infection) V08 [facility] [place] [facility] [address] [facility] [address] [place], [place] [phone] May, [facility] [place] [facility] [address] [facility] [address] [place] [phone] Mar, [facility] [address] [facility] [place] [address] Jan, [facility] [address] [facility] [place] [address] Oct, [facility] [address] [facility] [place] [address] Jul, [facility] [address] [facility] [place] [address] Apr, [facility] [address] [facility] [place] [address] Jan, [facility] [address] [facility] [place] [address] Oct, [facility] [address] [facility] [place] [address] Oct, [facility] [address] [facility] [place] [address] Jun, [facility] [address] [facility] [place] [address] May, [facility] [address] [facility] [place] [address] Dec, [facility] [address] [place] [address] Oct, [facility] [address] [facility] [address] [place], [place] [phone] Jul, IMMUNIZATIONS No Known Immunizations SOCIAL HISTORY Never Assessed REASON FOR VISIT PLAN OF CARE VITAL SIGNS MEDICATIONS Medication Instructions Dosage Frequency Start Date End Date Duration Status Ibuprofen 800 mg TAKE ONE TABLET BY MOUTH THREE TIMES A DAY NEEDED 30 Active RESULTS No Results PROCEDURES No [...]
--- OUTSIDE RECORDS SUMMARY | 2018-11-24 11:03 | XMS REPORT | CCD ---
Author Author DENISSE NAJERA Organization Unknown Address [address] [facility] [address] [place], [place] [address] Care Team Providers Care Senior Web Analyst Name Role Phone GWYN CRABTREE, BROCK Garibay Attphyhayder BROCK PASCAL MDsusamira Vital Signs Unknown or Not Available. Allergies Unknown or Not Available. Procedures Procedure Code Procedure Type Date CX CHEST [id number] 10/22/2014 ^CBC W/ MANUAL DIFF 30765511 SNOMED CT 10/22/2014 CULTURE BLOOD 72503255 SNOMED CT 10/22/2014 COMPREHENSIVE METABOLIC PANEL 191054236 SNOMED CT 2014 CBC W/ AUTO DIFF (RFLX MAN DIFF IF IND) 3954318 SNOMED CT 10/22/2014 INFLUENZA A & B 293871994 SNOMED CT 10/22/2014 History of Immunizations Unknown or Not Available. Problems Unknown or Not Available. Results COMPREHENSIVE METABOLIC PANEL - Collect Date/Time: 10/22/2014 22:30 Test Name Code Test Result Test Units Test Ref Range GLUCOSE 2345-7 111 MG/DL L=70 H=100 SODIUM 2951-2 139 MEQ/L L=135 H=148 POTASSIUM 2823-3 3.8 MEQ/L L=3.5 H=5.3 CHLORIDE 2075-0 106 MEQ/L L=96 H=110 CO2 2028-9 22 MEQ/L L=22 H=29 BUN 3094-0 7 MG/DL L=8 H=22 CREATININE 2160-0 1.1 MG/DL L=0.6 H=1.6 SGOT/AST 1920-8 20 IU/L L=10 H=40 SGPT/ALT 1742-6 38 IU/L L=8 H=54 ALK PHOS 6768-6 101 IU/L L=35 H=115 TOTAL PROTEIN 2885-2 6.8 G/DL L=5.5 H=8.5 ALBUMIN 1751-7 4.2 G/DL L=3.1 H=5.4 TOTAL BILI 1975-2 1.6 MG/DL L=0.0 H=1.5 CALCIUM 63194-8 9.2 MG/DL L=8.2 H=10.6 AGE 44 yrs GFR NonAA 72 GFR AA 87 eGFR >60 N/A eGFR AA* >60 N/A CBC W/ AUTO DIFF (RFLX MAN DIFF IF IND) - Collect Date/Time: 10/22/2014 22:30 Test Name Code Test Result Test Units Test Ref Range WBC 13129-5 7.5 TH/CMM L=4.5 H=10.8 RBC 789-8 4.65 ML/CMM L=4.70 H=6.10 HGB 718-7 14.7 G/DL L=14.0 H=18.0 HCT 4544-3 42.3 % L=42.0 H=52.0 MCV 91 FL L=81 H=99 MCH 31.6 PG L=27.0 H=33.0 MCHC 34.8 G/DL L=31.0 H=36.0 RDW SD 41 FL L=36 H=50 RDW CV 12.4 % L=0.0 H=14.8 MPV 10.4 FL L=9.3 H=12.5 PLT 777-3 147 TH/CMM L=130 H=440 NRBC# 0.00 TH/CMM L=0.00 H=0.00 NRBC% 0.0 /100WBC L=0.0 H=2.0 %NEUT 65.9 % %LYMP 11.9 % %MONO 20.1 % %EOS 2.0 % %BASO 0.1 % #NEUT 4.92 TH/CMM L=2.10 H=8.20 #LYMP 0.89 TH/CMM L=0.90 H=5.20 #MONO 1.50 TH/CMM L=0.16 H=1.00 #EOS 0.15 TH/CMM L=0.00 H=0.80 #BASO 0.01 TH/CMM L=0.00 H=0.20 SEGS 69 % BANDS 3 % LYMPHS 24 % MONOS 1 % EOS 3 % MANUAL DIFF SEE BELOW N/A ATYP LYMPHS 1+ N/A INFLUENZA A & B - Collect Date/Time: 10/22/2014 21:30 Test Name Code Test Result Test Units Test Ref Range INFLUENZA A & B 6437-8 NO INFLUENZA A OR B DETECTED N/A Active Medications Unknown or Not Available. Medications Administered During Visit Unknown or Not Available. Encounters Encounter Diagnosis Diagnosis Code Start Date FEVER UNSPCIFIED 94428 10/22/2014 Social History Smoking Status Code Start Date End Date Current every day smoker 490758919 Patient Decision Aids Unknown or Not Available. Discharge Instructions You were admitted to [facility] on 10/22/2014 with a principal diagnosis of FEVER UNSPCIFIED. You were discharged from [facility] on 10/22/2014. Should you have any questions prior to discharge, please contact a member of your healthcare team. If you have left the hospital and have any questions, please contact your primary care physician. Chief Complaint and Reason For Visit Chief Complaint Date of Onset FEVER WEAKNESS COUGH Function Status Unknown or Not Available. Referral/Transition of Care Unknown or Not Available.
--- OUTSIDE RECORDS SUMMARY | 2018-11-24 11:03 | XMS REPORT ---
Author Author Lynn Estrada [facility] eClinicalWorks Address Unknown Phone Unavailable Care Team Providers Care Power Line Installer Name Role Phone Lynn Estrada Unavailable Allergies No Known Allergies Problems Problem Type Condition Code Onset Dates Condition Status Problem Acquired immunodeficiency syndrome B20 Active Problem Smoking F17.200 Active Problem Depression F32.9 Active Problem Benign essential hypertension I10 Active Problem Mixed hyperlipidemia E78.2 Active Medications No Known Medications Results No Known Results Summary Purpose eClinicalWorks Submission
--- OUTSIDE RECORDS SUMMARY | 2018-11-24 11:03 | XMS REPORT ---
Author Author Nuvia Garcia [facility] Address [address], [place] [address] Care Team Providers Care Manager Gift Name Role Phone Nuvia Garcia Unavailable PROBLEMS ALLERGIES No Information ENCOUNTERS IMMUNIZATIONS No Known Immunizations SOCIAL HISTORY No smoking Hx information available REASON FOR VISIT PLAN OF CARE VITAL SIGNS MEDICATIONS Unknown Medications RESULTS No Results PROCEDURES No Known procedures INSTRUCTIONS MEDICATIONS ADMINISTERED No Known Medications MEDICAL (GENERAL) HISTORY
--- OUTSIDE RECORDS SUMMARY | 2018-11-24 11:03 | XMS REPORT ---
Author Author Lynn Estrada [facility] eClinicalWorks Address Unknown Phone Unavailable Care Team Providers Care Crude Tester Name Role Phone Lynn Estrada Unavailable Allergies No Known Allergies Problems Problem Type Condition Code Onset Dates Condition Status Assessment Influenza vaccine needed Z23 Active Problem Mixed hyperlipidemia E78.2 Active Assessment Acquired immunodeficiency syndrome B20 Active Problem Crushing injury of right foot, sequela S97.81XS Active Problem Arthralgia of right ankle M25.571 Active Problem Erectile dysfunction, unspecified erectile dysfunction type N52.9 Active Problem Acquired immunodeficiency syndrome B20 Active Problem Benign essential hypertension I10 Active Problem Cigarette smoker F17.210 Active Problem Depression F32.9 Active Assessment Crushing injury of right foot, sequela S97.81XS Active Assessment Arthralgia of right ankle M25.571 Active Assessment Erectile dysfunction, unspecified erectile dysfunction type N52.9 Active Medications Medication Code System Code Instructions Start Date End Date Status Dosage Descovy [facility] [address]-54 200-25 mg Orally Once a day April 11, 2016 1 Tablet Zoloft [facility] [address]-04 100 MG Orally Once a day Nov 03, 2014 1 tablet Evotaz [facility] 2001 1243-9065-48 300/150 mg Oral Daily February 16, 2015 1 Pravastatin Sodium [facility] [address]-68 40 MG Orally Once a day Nov 08, 2014 1 tablet Evotaz [facility] 51486955426 300-150 TAKE ONE TABLET BY MOUTH DAILY Ibuprofen [facility] 40535036078 800 TAKE ONE TABLET BY MOUTH THREE TIMES DAILY NEEDED Voltaren [facility] [address]-58 1 % Transdermal four times a day Jul 25, 2016 2-4 gm apply to right foot/ankle Wellbutrin SR [facility] [address]-11 150 MG Orally 2 tabs qam and 1 tab qpm Jun 08, 2015 1 tablet Lisinopril [facility] 46517203532 20 Orally Once a day 2 tablet s Cialis [facility] [address]-12 20 MG Orally every 72 hrs February 18, 2013 1 tablet as needed Procedures Procedure Coding System Code Date T CELL, ABSOLUTE COUNT/RATIO CPT-4 10610 Jul 25, 2016 COMPREHEN METABOLIC PANEL CPT-4 56775 Jul 25, 2016 HIV-1, DNA, QUANT CPT-4 96938 Jul 25, 2016 FLU VAC NO PRSV 4 JAIME 3 YRS+ CPT-4 55120 Jul 25, 2016 Office Visit, Est Pt., Level 4 CPT-4 64108 Jul 25, 2016 IMMUNIZATION ADMIN CPT-4 91397 Jul 25, 2016 Vital Signs Date/Time: Jul 25, 2016 Temperature 97.4 F Weight 200 lbs Height 72 in Respiratory Rate 16 /min Cardiac Monitoring Heart Rate 74 /min Blood Pressure Diastolic 90 mm Hg Blood Pressure Systolic 130 mm Hg BMI 27.12 Index Results Name Result Date Reference Range Unit Abnormality Flag CD4/CD8 Ratio Profile 30984 ----Monocytes(Absolute) 0.9 37514105 0.1-0.9 x10E3/uL ----Eos (Absolute) 0.2 25678672 0.0-0.4 x10E3/uL ----Baso (Absolute) 0.0 34977913 0.0-0.2 x10E3/uL ----Immature Granulocytes 0 70918307 % ----Immature Grans (Abs) 0.0 27637617 0.0-0.1 x10E3/uL ----NRBC CANDLES POURER 94694642 ----Hematology Comments: CANDLES POURER 97518156 ----Immature Cells CANDLES POURER 20160725 ----Neutrophils (Absolute) 4.3 59505131 1.4-7.0 x10E3/uL ----Lymphs (Absolute) 2.5 25139988 0.7-3.1 x10E3/uL ----MCH 31.4 57435366 26.6-33.0 pg ----MCV 92 67362052 79-97 fL ----Abs. CD 8 Suppressor 950 86588309 109-897 /uL H ----Basos 0 12653184 % ----% CD 8 Pos. Lymph. 38.0 03376986 12.0-35.5 % H ----Eos 2 77761529 % ----CD4/CD8 Ratio 1.17 58549617 0.92-3.72 ----Monocytes 11 95437841 % ----WBC 7.8 37839249 3.4-10.8 x10E3/uL ----Lymphs 32 75793450 % ----RBC 4.40 12628753 4.14-5.80 x10E6/uL ----Neutrophils 55 84418969 % ----Hemoglobin 13.8 01879252 12.6-17.7 g/dL ----Platelets 209 98089766 150-379 x10E3/uL ----RDW 13.1 23695839 12.3-15.4 % ----Hematocrit 40.6 78931159 37.5-51.0 % ----Absolute CD 4 [place] 1110 94605783 359-1519 /uL ----MCHC 34.0 69551603 31.5-35.7 g/dL ----% CD 4 Pos. Lymph. 44.4 18307079 30.8-58.5 % Human Immunodeficiency Virus (HIV-1), Quantitative, Real-time PCR (graph) 72562 ----HIV-1 RNA by PCR <20 26657699 copies/mL ----log10 HIV-1 RNA TNP 80629814 aga27qomk/mL Metabolic Panel (14), Comprehensive (CMP) 37742 ----Sodium, Serum 144 96905629 136-144 mmol/L ----BUN/Creatinine Ratio 8 93732401 9-20 L ----Chloride, Serum 105 49404024 97-106 mmol/L ----Potassium, Serum 3.7 86018512 3.5-5.2 mmol/L ----Calcium, Serum 8.6 10637327 8.7-10.2 mg/dL L ----Protein, Total, Serum 6.3 91688647 6.0-8.5 g/dL ----Carbon Dioxide, Total 25 85177200 18-29 mmol/L ----A/G Ratio 1.9 46078366 1.1-2.5 ----eGFR If NonAfricn Am 87 65263215 >59 mL/min/1.73 ----Bilirubin, Total 1.3 63719533 0.0-1.2 mg/dL H ----eGFR If Africn Am 100 20160725 >59 mL/min/1.73 ----BUN 8 20160725 6-24 mg/dL ----Albumin, Serum 4.1 20160725 3.5-5.5 g/dL ----Globulin, Total 2.2 20160725 1.5-4.5 g/dL ----Creatinine, Serum 1.02 20160725 0.76-1.27 mg/dL ----ALT (SGPT) 11 20160725 0-44 IU/L ----Glucose, Serum 80 06242311 65-99 mg/dL ----Alkaline Phosphatase, S 123 18681670 39-117 IU/L H ----AST (SGOT) 14 20160725 0-40 IU/L Immunizations Vaccine Administration Date Influenza Split 3 yrs > (QUAD) Jul 25, 2016 Summary Purpose eClinicalWorks Submission
--- OUTSIDE RECORDS SUMMARY | 2018-11-24 11:04 | XMS REPORT ---
Author Author Lynn Estrada [facility] eClinicalWorks Address Unknown Phone Unavailable Care Team Providers Care Tobacco Sizer Name Role Phone Lynn Estrada Unavailable Allergies No Known Allergies Problems Problem Type Condition Code Onset Dates Condition Status Problem Human immunodeficiency virus (HIV) disease 042 Active Problem Pain in soft tissues of limb 729.5 Active Problem Nondependent tobacco use disorder 305.1 Active Assessment Depression F32.9 Active Problem Hyperlipidemia 272.4 Active Problem Smoker 305.1 Active Problem Depression F32.9 Active Problem ED (erectile dysfunction) 607.84 Active Problem Essential hypertension, benign 401.1 Active Problem Depression 311 Active Problem Hyperglycemia 790.29 Active Medications Medication Code System Code Instructions Start Date End Date Status Dosage Wellbutrin SR [facility] [address]-99 150 MG Orally Twice a day Jun 08, 2015 1 tablet Results No Known Results Summary Purpose eClinicalWorks Submission
--- OUTSIDE RECORDS SUMMARY | 2018-11-24 11:04 | XMS REPORT ---
Author Author Nuvia Garcia [facility] eClinicalWorks Address Unknown Phone Unavailable Care Team Providers Care Guest Services Associate Name Role Phone Nuvia Garcia CP Unavailable Allergies, Adverse Reactions, Alerts Substance Reaction Event Type N.K.D.A. Info Not Available Non Drug Allergy Problems Problem Type Condition Code Onset Dates Condition Status Problem Acquired immunodeficiency syndrome B20 Active Problem Smoking F17.200 Active Problem Depression F32.9 Active Assessment Human immunodeficiency virus (HIV) disease B20 Active Assessment Smoking F17.200 Active Problem Benign essential hypertension I10 Active Problem Mixed hyperlipidemia E78.2 Active Medications Medication Code System Code Instructions Start Date End Date Status Dosage Ibuprofen [facility] 51696664607 800MG TAKE ONE TABLET BY MOUTH THREE TIMES DAILY NEEDED Cialis [facility] [address]-25 20 MG Orally every 72 hrs February 18, 2013 1 tablet as needed Zoloft [facility] [address]-44 100 MG Orally Once a day Nov 03, [address] [facility] 1290-1912-44 300/150 mg Oral Daily February 16, [address] [facility] 92042663428 200-300 MG TAKE ONE TABLET BY MOUTH ONCE DAILY Lisinopril [facility] 33470418471 20 Orally Once a day 2 tablet [address] P[address] S[address] [facility] [address]-73 40 MG Orally Once a day Nov 08, [address] [facility] [address]-47 150 MG Orally Twice a day Jun 08, 2015 1 tablet Procedures Procedure Coding System Code Date COMPREHEN METABOLIC PANEL CPT-4 40714 Sep 21, 2015 Office Visit, Est Pt., Level 3 CPT-4 29484 Sep 21, 2015 T CELL, ABSOLUTE COUNT/RATIO CPT-4 62070 Sep 21, 2015 Vital Signs Date/Time: Sep 21, 2015 Temperature 97.7 F Weight 212 lbs Height 72 in Respiratory Rate 18 /min Cardiac Monitoring Heart Rate 78 /min Blood Pressure Diastolic 92 mm Hg Blood Pressure Systolic 138 mm Hg BMI 28.75 Index Oximetry 98 % Results No Known Results Summary Purpose eClinicalWorks Submission
--- OUTSIDE RECORDS SUMMARY | 2018-11-24 11:04 | XMS REPORT ---
Author Author Lynn Estrada Organization eClinicalWorks Address Unknown Phone Unavailable Care Team Providers Care Safety Deposit Boxes Custodian Name Role Phone Lynn Estrada Unavailable Allergies No Known Allergies Problems Problem Type Condition Code Onset Dates Condition Status Problem Human immunodeficiency virus (HIV) disease 042 Active Problem Pain in soft tissues of limb 729.5 Active Problem Nondependent tobacco use disorder 305.1 Active Problem Hyperlipidemia 272.4 Active Problem Smoker 305.1 Active Problem Depression F32.9 Active Problem ED (erectile dysfunction) 607.84 Active Problem Essential hypertension, benign 401.1 Active Problem Depression 311 Active Problem Hyperglycemia 790.29 Active Medications No Known Medications Results No Known Results Summary Purpose eClinicalWorks Submission
--- OUTSIDE RECORDS SUMMARY | 2018-11-24 11:04 | XMS REPORT ---
Author Author Lynn Estrada [facility] Address [address] [place], [place] [address] Care Team Providers Care Social Worker Name Role Phone Lynn Estrada Unavailable PROBLEMS Type Condition ICD9-CM Code FRL88-ND Code Onset Dates Condition Status SNOMED Code Problem Acquired immunodeficiency syndrome B20 Active 84362796 Problem Cigarette smoker F17.210 Active 23187746 Problem Depression F32.9 Active 92638307 Problem Mixed hyperlipidemia E78.2 Active 848934026 Problem Benign essential hypertension I10 Active 3066009 Problem Generalized osteoarthritis of multiple sites M15.9 Active 280475848 Problem Other chronic pain G89.29 Active 71156245 Problem Crushing injury of right foot, sequela S97.81XS Active 96015909 Problem Arthralgia of right ankle M25.571 Active 697850339 Problem Bronchiolitis J21.9 Active 1460728 Problem Erectile dysfunction, unspecified erectile dysfunction type N52.9 Active 708733179 ALLERGIES Unknown Allergies SOCIAL HISTORY No smoking Hx information available PLAN OF CARE VITAL SIGNS MEDICATIONS Unknown Medications RESULTS No Results PROCEDURES No Known procedures IMMUNIZATIONS No Known Immunizations
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
--- OUTSIDE RECORDS SUMMARY | 2018-11-24 11:04 | XMS REPORT ---
Author Author Nuvia Garcia [facility] eClinicalWorks Address Unknown Phone Unavailable Care Team Providers Care Food And Nutrition Services Assistant Name Role Phone Nuvia Garcia CP Unavailable Allergies, Adverse Reactions, Alerts Substance Reaction Event Type N.K.D.A. Info Not Available Non Drug Allergy Problems Problem Type Condition ICD-9 Code Onset Dates Condition Status Problem group home (current) use of opiate analgesic V58.69 Inactive Problem Impotence of organic origin 607.84 Inactive Problem Need for prophylactic vaccination against streptococcus pneumoniae ( pneumococcus) V03.82 Inactive Problem Essential hypertension, benign 401.1 Active Problem Pain in soft tissues of limb 729.5 Inactive Problem Human immunodeficiency virus [HIV] 042 Inactive Problem Need for prophylactic vaccination and inoculation, Influenza V04.81 Inactive Problem Unspecified sinusitis (chronic) 473.9 Inactive Problem Nondependent tobacco use disorder 305.1 Active Problem Screening examination for venereal disease V74.5 Inactive Assessment Depression 311 Active Assessment Smoker 305.1 Active Assessment Asymptomatic human immunodeficiency virus (HIV) infection status V08 Active Problem Unspecified infectious and parasitic diseases 136.9 Inactive Medications Medication Code System Code Instructions Start Date End Date Status Dosage Reyataz [facility] [address]-66 200 MG Oral 2 (two) daily March 09, 2014 not defined Ibuprofen [facility] 02163986317 800 TAKE ONE TABLET BY MOUTH THREE TIMES A DAY NEEDED Chantix [facility] [address]-68 0.5 MG Orally Once a day Nov 03, 2014 1 tablet Zoloft [facility] [address]-21 50 MG Orally 0.5 tab x 7 days then 1 tab daily Nov 03, 2014 1 tablet Cialis [facility] [address]-30 20 MG Oral 1 (one) Tablet every 72 hours prn February 18, 2013 mailed to patient Norvir [facility] 57670459278 100 TAKE ONE CAPSULE BY MOUTH EVERY DAY Lisinopril [facility] 51241656723 20 TAKE 1 AND A HALF TABLETS BY MOUTH ONCE DAILY Chantix [facility] [address]-06 1 MG Orally Twice a day Nov 03, 2014 1 tablet Popeyeuvpedro [facility] 47327520684 200-300 TAKE ONE TABLET BY MOUTH EVERY DAY Procedures Procedure Coding System Code Date T CELL, ABSOLUTE COUNT/RATIO CPT-4 41941 Nov 03, 2014 COMPREHEN METABOLIC PANEL CPT-4 49466 Nov 03, 2014 Office Visit, New Pt., Level 3 CPT-4 99743 Nov 03, 2014 COMPLETE CBC W/AUTO DIFF WBC IH CPT-4 32906 Nov 03, 2014 BLOOD SEROLOGY, QUALITATIVE CPT-4 04151 Nov 03, 2014 LIPID PANEL SO CPT-4 20440 Nov 03, 2014 ASSAY OF FREE THYROXINE CPT-4 40960 Nov 03, 2014 ASSAY THYROID STIM HORMONE CPT-4 14388 Nov 03, 2014 Vital Signs Date/Time: Nov 03, 2014 Temperature 97.9 F Weight 221.9 lbs Height 71.5 in Respiratory Rate 24 /min Cardiac Monitoring Heart Rate 80 /min Blood Pressure Diastolic 75 mm Hg Blood Pressure Systolic 121 mm Hg BMI 30.51 Index Results No Known Results Summary Purpose eClinicalWorks Submission
--- OUTSIDE RECORDS SUMMARY | 2018-11-24 11:04 | XMS REPORT ---
Author Author Lynn Estrada [facility] Address [address], [place] [id number] Care Team Providers Care Facility Examiner Name Role Phone Lynn Estrada Unavailable PROBLEMS Type Condition ICD9-CM Code [id number] Code Onset Dates Condition Status SNOMED Code Problem Acquired immunodeficiency syndrome B20 Active 62280745 Problem Cigarette smoker F17.210 Active 68412678 Problem Depression F32.9 Active 54796630 Problem Mixed hyperlipidemia E78.2 Active 243286017 Problem Benign essential hypertension I10 Active 1316501 Problem Generalized osteoarthritis of multiple sites M15.9 Active 404974761 Problem Other chronic pain G89.29 Active 32913273 Problem Crushing injury of right foot, sequela S97.81XS Active 22460602 Problem Arthralgia of right ankle M25.571 Active 175913408 Problem Bronchiolitis J21.9 Active 3541785 Problem Erectile dysfunction, unspecified erectile dysfunction type N52.9 Active 104524465 ALLERGIES Unknown Allergies SOCIAL HISTORY No smoking Hx information available PLAN OF CARE Activity Details Follow Up 3 Months Reason:null Pending Test Human Immunodeficiency Virus (HIV-1), Quantitative, Real-time PCR (graph) 23847 Pending Test Lipid Panel 78472 Pending Test Metabolic Panel (14), Comprehensive (CMP) 58493 Pending Test CD4/CD8 Ratio Profile 28655 Pending Test QMP Plus D/L (urine) Pending Test Opioid/Opiate Agreement (Annual) VITAL SIGNS Height 72 in 2017-05-15 Weight 222 lbs 2017-05-15 Temperature 97.0 degrees Fahrenheit 2017-05-15 Heart Rate 87 /min 2017-05-15 Respiratory Rate 18 /min 2017-05-15 Oximetry 97 % 2017-05-15 BMI 30.11 kg/m2 2017-05-15 Blood pressure systolic 120 mm Hg 2017-05-15 Blood pressure diastolic 82 mm Hg 2017-05-15 MEDICATIONS Medication Instructions Dosage Frequency Start Date End Date Duration Status Cialis 20 MG Orally every 72 hrs 1 tablet as needed February, 30 days Active Pravastatin Sodium 40 MG Orally Once a day 1 tablet 24h 04 Nov, 2014 30 day(s) Active Descovy 200-25 mg Orally Once a day 1 Tablet 24h Apr, 30 days Active Ventolin HFA 108 (90 Base) MCG/ACT Inhalation every 4 hrs 2 puffs as needed 4h 10 Nov, 2016 30 days Active Evotaz 300/150 mg Oral Daily 1 24h February, 30 days Active Lisinopril 40 TAKE ONE TABLET BY MOUTH DAILY 30 Active Voltaren 1 % Transdermal four times a day 2-4 gm apply to right foot/ankle 6h Jul, 30 days Active [place] 10-325 MG Orally every 12 hrs 1 tablet as needed 12h May, 30 days Active Ibuprofen 800 TAKE ONE TABLET BY MOUTH THREE TIMES A DAY NEEDED 30 Active RESULTS No Results PROCEDURES Procedure Date Ordered Related Diagnosis Body Site COMPREHEN METABOLIC PANEL May 15, 2017 T CELL, ABSOLUTE COUNT/RATIO May 15, 2017 Office Visit, Est Pt., Level 4 May 15, 2017 IMMUNIZATION ADMIN May 15, 2017 Billed by outside source May 15, 2017 HIV-1, DNA, QUANT May 15, 2017 Pneumococcal polysaccharide PPV23 May 15, 2017 LIPID PANEL SO May 15, 2017 IMMUNIZATIONS Vaccine Route Administration Date Status Pneumococcal polysaccharide PPV23 IM Intramuscular May 15, 2017 Administered
--- OUTSIDE RECORDS SUMMARY | 2018-11-24 11:04 | XMS REPORT ---
Author Author Lynn Estrada [facility] Address [address] [place] [address], [place] [id number] Care Team Providers Care Office Spec Name Role Phone Lynn Estrada Unavailable PROBLEMS Type Condition ICD9-CM Code [id number] Code Onset Dates Condition Status SNOMED Code Problem Benign essential hypertension I10 Active 1312118 Problem Depression F32.9 Active 06782131 Problem Acquired immunodeficiency syndrome B20 Active 76834525 Problem Mixed hyperlipidemia E78.2 stable 257847172 Problem Other chronic pain G89.29 Active 86280935 Problem Bronchiolitis J21.9 Active 0049531 Problem Arthralgia of right ankle M25.571 Active 040130777 Problem Cigarette smoker F17.210 Active 84082962 Problem Erectile dysfunction, unspecified erectile dysfunction type N52.9 well-controlled 902297434 Problem Crushing injury of right foot, sequela S97.81XS well- controlled 29011976 ALLERGIES Unknown Allergies SOCIAL HISTORY No smoking Hx information available PLAN OF CARE VITAL SIGNS MEDICATIONS Unknown Medications RESULTS No Results PROCEDURES No Known procedures IMMUNIZATIONS No Known Immunizations
--- OUTSIDE RECORDS SUMMARY | 2018-11-24 11:04 | XMS REPORT ---
Author Author Lynn Estrada [facility] Address [address], [place] [id number] Care Team Providers Care Planting Machine Crewman Name Role Phone Lynn Estrada Unavailable PROBLEMS Type Condition ICD9-CM Code [id number] Code Onset Dates Condition Status SNOMED Code Problem Benign essential hypertension I10 Active 8791735 Problem Depression F32.9 Active 51512599 Problem Acquired immunodeficiency syndrome B20 Active 73564722 Assessment Acquired immune deficiency syndrome B20 February, Active 62629283 Problem Mixed hyperlipidemia E78.2 stable 191923187 Problem Other chronic pain G89.29 Active 83712866 Problem Bronchiolitis J21.9 Active 9468923 Problem Arthralgia of right ankle M25.571 Active 205502277 Problem Cigarette smoker F17.210 Active 19931711 Problem Erectile dysfunction, unspecified erectile dysfunction type N52.9 well-controlled 037400721 Problem Crushing injury of right foot, sequela S97.81XS well- controlled 63873313 ALLERGIES Unknown Allergies SOCIAL HISTORY No smoking Hx information available PLAN OF CARE Activity Details Pending Test Human Immunodeficiency Virus (HIV-1), Quantitative, Real-time PCR (graph) 59517 Pending Test Rapid Plasma Reagin (RPR), Test w/ Reflex to Quant RPR/Confirm Treponema pallidum Antibodies 78657 Pending Test Lipid Panel 58472 Pending Test Metabolic Panel (14), Comprehensive (CMP) 06465 Pending Test CD4/CD8 Ratio Profile 66405 3 Months,Reason: VITAL SIGNS Height 72 in 2017-02-13 Weight 212 lbs 2017-02-13 Temperature 98.2 degrees Fahrenheit 2017-02-13 Heart Rate 93 /min 2017-02-13 Respiratory Rate 16 /min 2017-02-13 Oximetry 96 % 2017-02-13 BMI 28.75 kg/m2 2017-02-13 Blood pressure systolic 114 mm Hg 2017-02-13 Blood pressure diastolic 76 mm Hg 2017-02-13 MEDICATIONS Medication Instructions Dosage Frequency Start Date End Date Duration Status Zoloft 100 MG Orally Once a day 1 tablet 24h Oct, 30 days Active Cialis 20 MG Orally every 72 hrs 1 tablet as needed February, 30 days Active Pravastatin Sodium 40 MG Orally Once a day 1 tablet 24h Nov, 30 day(s) Active Voltaren 1 % Transdermal four times a day 2-4 gm apply to right foot/ankle 6h Jul, 30 days Active Evotaz 300/150 mg Oral Daily 1 24h February, 30 days Active Ibuprofen 800 TAKE ONE TABLET BY MOUTH THREE TIMES DAILY NEEDED 30 Active Ventolin HFA 108 (90 Base) MCG/ACT Inhalation every 4 hrs 2 puffs as needed 4h Nov, 30 days Active Celebrex 200 MG Orally Once a day 1 capsule 24h Nov, 30 day(s) Active Descovy 200-25 mg Orally Once a day 1 Tablet 24h Apr, 30 days Active Lisinopril 40 TAKE ONE TABLET BY MOUTH DAILY 30 Active Wellbutrin SR 150 MG TAKE ONE TABLET BY MOUTH TWICE A DAY 30 Active RESULTS No Results PROCEDURES Procedure Date Ordered Related Diagnosis Body Site COMPREHEN METABOLIC PANEL February 13, 2017 T CELL, ABSOLUTE COUNT/RATIO February 13, 2017 LIPID PANEL SO February 13, 2017 HIV-1, DNA, QUANT February 13, 2017 Office Visit, Est Pt., Level 4 February 13, 2017 BLOOD SEROLOGY, QUALITATIVE February 13, 2017 IMMUNIZATIONS No Known Immunizations
--- OUTSIDE RECORDS SUMMARY | 2018-11-24 11:04 | XMS REPORT ---
Author Author BROCK WALSH Organization [employer] Address Unknown Phone Unavailable Care Team Providers Care Litigation Assistant Name Role Phone BROCK WALSH CP Unavailable [...]
--- OUTSIDE RECORDS SUMMARY | 2018-11-24 11:04 | XMS REPORT ---
Author Author Tamiko Portillo [facility] Address [address], [place] [id number] Care Team Providers Care Machine Stone Polisher Name Role Phone Tamiko Portillo Unavailable PROBLEMS Type Condition ICD9-CM Code [id number] Code Onset Dates Condition Status SNOMED Code Problem Benign essential hypertension I10 Active 4581624 Problem Arthralgia of right ankle M25.571 Active 989793875 Problem Depression F32.9 Active 01566237 Problem Acquired immunodeficiency syndrome B20 Active 97667859 Problem Mixed hyperlipidemia E78.2 Active 760080682 Problem Generalized osteoarthritis of multiple sites M15.9 Active 550701547 Problem Bronchiolitis J21.9 Active 5247614 Problem Cigarette smoker F17.210 Active 88333080 Problem Erectile dysfunction, unspecified erectile dysfunction type N52.9 Active 370493029 Problem Other chronic pain G89.29 Active 15955244 Problem Crushing injury of right foot, sequela S97.81XS Active 39506016 ALLERGIES No Known Allergies SOCIAL HISTORY Never Assessed PLAN OF CARE Activity Details Follow Up 3 Months Reason: Pending Test Human Immunodeficiency Virus (HIV-1), Quantitative, Real-time PCR (graph) 17265 Pending Test Metabolic Panel (14), Comprehensive (CMP) 90253 Pending Test CD4/CD8 Ratio Profile 14358 VITAL SIGNS Height 72 in 2017-08-07 Weight 223 lbs 2017-08-07 Temperature 96.9 degrees Fahrenheit 2017-08-07 Heart Rate 91 /min 2017-08-07 Respiratory Rate 18 /min 2017-08-07 Oximetry 97 % 2017-08-07 BMI 30.24 kg/m2 2017-08-07 Blood pressure systolic 148 mm Hg 2017-08-07 Blood pressure diastolic 86 mm Hg 2017-08-07 MEDICATIONS Medication Instructions Dosage Frequency Start Date End Date Duration Status Ventolin HFA 108 (90 Base) MCG/ACT Inhalation every 4 hrs 2 puffs as needed 4h Nov, 30 days Active Lisinopril 40 TAKE ONE TABLET BY MOUTH DAILY 30 Active Voltaren 1 % Transdermal four times a day 2-4 gm apply to right foot/ankle 6h Jul, 30 days Active [place] 10-325 MG Orally every 12 hrs 1 tablet as needed 12h 11 May, 2017 30 days Active Pravastatin Sodium 40 MG Orally Once a day 1 tablet 24h 04 Nov, 2014 30 day(s) Active Cialis 20 MG Orally every 72 hrs 1 tablet as needed February, 30 days Active Evotaz 300/150 mg Oral Daily 1 24h February, 30 days Active Zoloft 100 MG Orally Once a day 1 tablet 24h 30 Oct, 2014 30 days Active Descovy 200-25 mg Orally Once a day 1 Tablet 24h Apr, 30 days Active Ventolin HFA 90 Inhalation every 4 hrs 2 puffs as needed 4h 16 Active Ibuprofen 800 TAKE ONE TABLET BY MOUTH THREE TIMES A DAY NEEDED 30 Active RESULTS No Results PROCEDURES Procedure Date Ordered Result Body Site COMPLETE BLOOD COUNT W/AUTO DIFF Aug 07, 2017 T CELL, ABSOLUTE COUNT/RATIO Aug 07, 2017 COMPREHEN METABOLIC PANEL Aug 07, 2017 HIV-1, DNA, QUANT Aug 07, 2017 IMMUNIZATION ADMIN Aug 07, 2017 FLU VAC NO PRSV 4 JAIME 3 YRS+ Aug 07, 2017 IMMUNIZATIONS Vaccine Route Administration Date Status Influenza Split 3 yrs > (QUAD) IM Intramuscular Aug 07, 2017 Administered MEDICAL (GENERAL) HISTORY Type Description Date Medical [...]
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
[2018-11-24] MEDS ORDERED: LACTATED RINGERS 1,000 ML IV ONE (11:12)
[2018-11-24] MEDS ORDERED: LACTATED RINGERS 1,000 ML IV STA (11:27)
[2018-11-24 11:29] VITALS: BP 133/101
[2018-11-24] MEDS ORDERED: HURRICAINE EXT TUBE (BENZOCAINE) XX PRN (11:30)
--- NOTE | 2018-11-24 14:18 | Progress Note-Pre Operative ---
Pre-Operative Progress Note H&P Reviewed The H&P was reviewed, patient examined and no changes noted. Time Seen by Provider: 14:14 Date H&P Reviewed: Nov 24, 2018 Time H&P Reviewed: 14:15 Pre-Operative Diagnosis: Melena and Gastritis FRANSICO DANIELS DO Nov 24, 2018 14:18
[2018-11-24] MEDS ORDERED: MIDAZOLAM 5 MG/5 ML (VERSED) VIAL ONE (14:40)
[2018-11-24] MEDS ORDERED: PROPOFOL INJECTION 50 ML IV ONE (14:40)
--- NOTE | 2018-11-24 15:46 | Progress Note-Post Operative ---
Post-Operative Progess Note Surgeon (s)/Desk Manager (s) Surgeon FRANSICO DANIELS DO Desk Manager: none Pre-Operative Diagnosis Melena and Gastritis Post-Operative Diagnosis Gastritis, Duodenitis, Hiatal Hernia, Feliciano's esophagus Colon Polyps Diverticula Int hemorrhoids Procedure & Operative Findings Date of Procedure 11/24/18 Procedure Performed/Findings EGD with bx Colon with snare Anesthesia Type IV sedation by FLYING TEACHER Estimated Blood Loss Estimated blood loss (mL): scant Specimens/Packing Specimens Removed duodenal, antral and GE jxn bx Desc colon polyp x 2 Asc colon polyp x 2 FRANSICO DANIELS DO Nov 24, 2018 15:46
--- NOTE | 2018-11-24 15:48 | Endoscopy Discharge Instruct ---
Endo Procedure/Findings Findings 1.: Gastritis, Feliciano's Esophagus 2.: Polyp 3.: Diverticulosis 4.: Internal Hemorrhoids Discharge Instructions - Activity: You might feel a little sleepy until tomorrow. This is due to the medicine you received to relax you. Until tomorrow, you should: NOT drive a car, operate machinery or power tools. NOT drink any alcoholic beverages. NOT make any important decisions or sign importortant papers. Do not return to work until tomorrow, unless otherwise instructed. Resume previous activities tomorrow. Diet: Start by taking liquids. If you tolerate liquids, advance to solid food. make an appointment for one week. Instructions: 1.: Colonscopy in 3 years 2.: EGD in 6-8 weeks Notify Physician - If you experience excessive bleeding, unusual abdominal pain, fever, or chest pain, contact your doctor immediately. Follow-Up: - I have received and understand the above instructions and will call my doctor if I have any further questions. Patient Signature Date Nurse Signature Other (Relationship) FRANSICO DANIELS DO Nov 24, 2018 15:48
[2018-11-24 15:50] VITALS: BP 136/94
[2018-11-24 16:20] VITALS: BP 140/102
[2018-11-24 16:30] VITALS: BP 140/102
--- NOTE | 2018-11-25 03:32 | OPERATIVE REPORT ---
DATE OF SERVICE: 11/24/2018 PREOPERATIVE DIAGNOSES: 1. Gastritis. 2. Melena. POSTOPERATIVE DIAGNOSES: 1. Gastritis. 2. Duodenitis. 3. Feliciano's esophagus. 4. Hiatal hernia. 5. Colon polyps. 6. Diverticula. 7. Internal hemorrhoids. PROCEDURES: 1. EGD with biopsy. 2. Colonoscopy with snare polypectomy. SURGEON: Checo Harvey DO CHEMICAL LAB SUPERVISOR: None. ANESTHESIA: IV sedation by THERAPY ADMINISTRATIVE ASSISTANT. SPECIMEN: One biopsy from duodenum, one from the antrum and three biopsies from the GE junction. Two polyps from the ascending colon, two polyps from the descending colon. BLOOD LOSS: Scant. FLUIDS: Per anesthesia. POSTOPERATIVE CONDITION: Stable. INDICATION FOR PROCEDURE: The patient is a 48-year-old male who has had some melena and needed a colonoscopy, also had some chronic gastritis, needed EGD. FINDINGS: The patient had some inflammation in the duodenum as well as inflammation in the antrum and it looked like he had Feliciano's esophagus in the colon. He had multiple polyps removed, some diverticula and some internal hemorrhoids. PROCEDURE NOTE: After informed consent was obtained, the patient was brought to the endoscopy suite, placed in the left lateral decubitus position. He was administered IV sedation by THERAPY ADMINISTRATIVE ASSISTANT and then monitored vitals the entire time, heart rate, blood pressure and pulse ox and the scope inserted first down the mouth through the esophagus into the stomach and then towards the antrum. Antrum looked erythematous and likely some gastritis, pushed into the duodenum, thought this would look like duodenitis, took a picture. Pushed pass this into the second portion of the duodenum. This looked fine. Pulled back into the first portion of duodenum, did a biopsy here, pulled back into the antrum, did another biopsy. I retroflexed the scope, saw small hiatal hernia and then pulled the scope up into the esophagus at the GE junction on the way in and looked like probably Feliciano's esophagus with some creeping up of the Z line, elected to do 3 biopsies here. Good biopsies obtained then pulled scope out of esophagus and into the mouth. Switched gloves, switched scopes, went to the other side, start the colonoscopy. Pushed the scope in all the way to 160 cm, able to get to the cecum, took a picture of the appendiceal orifice, noted the ileocecal valve and then slowly withdrew the scope insufflating look circumferentially at the gates looking up the ascending colon, saw a polyp, did hot snare polypectomy of this and then pulled up a little bit further, saw another polyp, did another snare polypectomy and then up to the hepatic flexure, then down the transverse colon, the splenic flexure into the descending colon and then descending colon, saw two more polyps, did two more snare polypectomies of these and then continued down into the sigmoid colon and finally into the rectum, retroflexed the rectal vault, saw some minimal internal hemorrhoids, took a picture of this and removed the scope. The patient tolerated the procedure and he was recovered in the endoscopy suite. Job ID: [id number] DocumentID: [id number] Dictated Date: 11/24/2018 15:44:54 Instructional Technology Director Date: 11/25/2018 00:17:34 Dictated By: CHECO HARVEY DO MTDMallorie
== END 2018-11-24 16:30 | disposition home or self-care (01) ==
LOC: ENDO 10:54
PROVIDERS: ATTEND Surgery
DX: K29.50 Unspecified chronic gastritis without bleeding (principal); K29.80 Duodenitis without bleeding; K22.70 Barrett's esophagus without dysplasia; K44.9 Diaphragmatic hernia without obstruction or gangrene; D12.2 Benign neoplasm of ascending colon; D12.4 Benign neoplasm of descending colon; K57.30 Diverticulosis of large intestine without perforation or abscess without bleeding; K64.8 Other hemorrhoids; I10 Essential (primary) hypertension; F20.9 Schizophrenia, unspecified; K31.89 Other diseases of stomach and duodenum; K21.0 Gastro-esophageal reflux disease with esophagitis; B20 Human immunodeficiency virus [HIV] disease; E78.5 Hyperlipidemia, unspecified; F17.210 Nicotine dependence, cigarettes, uncomplicated; G62.9 Polyneuropathy, unspecified; F31.9 Bipolar disorder, unspecified; F41.9 Anxiety disorder, unspecified; Z79.899 Other long term (current) drug therapy
CPT/HCPCS: 88305